=== PATIENT | female | born 1935 | race Caucasian/White ===

== ENCOUNTER 2016-03-21 08:36 | Inpatient (IN) | payer MEDICARE, MEDICAID ==
[~2016-03-21] VITALS: Ht 162.6 cm; Wt 88.9 kg
--- NOTE | 2016-03-21 09:32 | Emergency Room Report ---
History of Present Illness General Chief Complaint: Multiple Trauma/Fall Source: Caregiver Present Illness HPI 81 YO F KIANA, sent by PMD Dr Carranza for failure to thrive and weakness. Patient's daughter endorses increased difficulty caring for mother - has ? dementia - is weak, cant ambulate for "some time." States they were trying to change her and she slid off couch but didnt fall hard or hurt anything on the fall. Denies any pain now. Patient's daughter also endorses decreased appetite , not eating/drinking normally. Patient's has "broken leg" and its been difficult for daughter to care for both of them at her house. patient also refusing to take her medication for HTN, thyroid, "memory pil;l." I disagree with non destructive evaluation specialist note that patient is here for "Fall" with back pain. Dr Carranza called ED yesterday to let us know he was sending patient for admission for failure to thrive and weakness. Allergies: Coded Allergies: No Known Allergies (Unverified , 03/21/16) Patient History Past Medical History: other - HTN, "thyroid problem," ?dementia Past Surgical History: none Pertinent Family History: none Social History: Denies: alcohol use, drug use, smoking Now: No Immunizations: UTD Nursing Documentation-PMH Hx Cardiac Problems: No Hx Hypertension: Yes Hx Pacemaker: No Hx Asthma: No Hx COPD: No Hx Diabetes: No Hx Cancer: No Hx Gastrointestinal Problems: No History Of Psychiatric Problem: No Hx Neurological Problems: Yes - thyroid Hx Cerebrovascular Accident: No Hx Seizures: No Review of Systems All Other Systems: negative except mentioned in HPI Physical Exam Vital Signs Date Time Temp Pulse Resp B/P Pulse Ox O2 Delivery O2 Flow Rate FiO2 03/21/16 08:58 97.9 66 16 126/80 98 Room Air Sp02 EP Interpretation: reviewed, normal General Appearance: normal inspection, well appearing, no apparent distress, alert, GCS 15, non-toxic, other - Elderly appearing, calm cooperative Head: normocephalic, atraumatic Eyes: bilateral eye EOMI, bilateral eye PERRL ENT: normal ENT inspection, hearing grossly normal, normal voice Neck: normal inspection, full range of motion, supple, no bony tend Respiratory: normal inspection, lungs clear, normal breath sounds, no respiratory distress, no retraction, no wheezing Cardiovascular #1: regular rate, rhythm, no edema Gastrointestinal: normal inspection, normal bowel sounds, non tender, soft, no guarding, no hernia Genitourinary: no CVA tenderness Musculoskeletal: normal inspection, back normal, normal range of motion, non- tender, no calf tenderness, pelvis stable, Macho's Sign negative Neurologic: normal inspection, alert, oriented x3, responsive, staff climate scientist III-XII nml as tested, speech normal, other - Weakness, 2/5 strength in lower extremities. Sensation intact. Psychiatric: normal inspection, judgement/insight normal, mood/affect normal Skin: normal inspection, normal color, no rash Medical Decision Making Medicare Attestation I Roxanna Tellez MD hereby attest that the medical record entry for date of service, 02/26/16 accurately reflects signatures/notations that I made in my capacity as MD when I treated/diagnosed the above listed Medicare beneficiary. I attest that this information is true, accurate and complete to the best of my knowledge. I understand that any falsification, omission, or concealment of material fact may subject me to administrative, civil, or criminal liability. This patient warrants hospital admission for extreme of age and has a condition that cannot be treated as outpatient. Diagnostic Impression: Primary Impression: Failure to thrive Qualified Codes: R62.7 - Adult failure to thrive Additional Impression: Weakness ER Course 81 YO F with failure to thrive, chronic weakness. Non compliance with home medication. VSS. Afebrile. DDx Metabolic abnormality, infection, CVA, AMI, dementia PLAN Evaluate for medical cause of weakness with labs, CXR/UA, CT head Admit for weakness to Dr Carranza EKG Diagnostic Results Rate: normal Rhythm: NSR ST Segments: no acute changes ASA given to the pt in ED: No Rhythm Strip Diag. Results EP Interpretation: yes Rate: 68 Rhythm: NSR, no PVC's, no ectopy Chest X-Ray Diagnostic Results EP Interpretation: Yes Findings: no consolidation, no effusion, no pneumothorax, no acute cardiopulmonary disease, other - bilateral interstitial disease Number of Views: 1 Reevaluation Time: 10:22 Last Vital Signs Date Time Temp Pulse Resp B/P Pulse Ox O2 Delivery O2 Flow Rate FiO2 03/21/16 08:58 97.9 66 16 126/80 98 Room Air Status: improved Reevaluation Impression labs: Mild leuks. UA no UTI. CMP normal. Troponin 0. CXR: No acute PNA EKG is NSR, no ischemia CT head: age related changes, no CVA, mass, mass effect A: Endorsed to Dr Carranza for admission for failure to thrive/weakness at 1022am. Disposition: ADMITTED INPATIENT Condition: Serious ROXANNA TELLEZ M.D. Mar 21, 2016 09:32
[2016-03-21] MEDS ORDERED: KLONOPIN0.5 MG ORAL (09:56)
[2016-03-21] MEDS ORDERED: SIMVASTATIN20 MG ORAL (09:56)
[2016-03-21] MEDS ORDERED: AMBIEN10 M1 ORAL (09:56)
[2016-03-21] MEDS ORDERED: LEVOTHYROXINE125 MCG ORAL (09:57)
[2016-03-21] MEDS ORDERED: AMLODIPINE BESYL5 MG ORAL (09:57)
[2016-03-21] MEDS ORDERED: NAMZARIC 28 MG1 EACH PO (09:58)
[2016-03-21 10:05] LABS: BASOPHILS % (AUTO) 1.2 % (0.0-2.0); EOSINOPHILS % (AUTO) 4.2 % (0.0-3.0); LYMPHOCYTES % (AUTO) 30.2 % (20.0-45.0); MEAN CORPUSCULAR HEMOGLOBIN 28.5 PG (27.0-31.0); MEAN CORPUSCULAR HGB CONC 32.3 G/DL (32.0-36.0); MEAN CORPUSCULAR VOLUME 88 FL (80-99); MEAN PLATELET VOLUME 7.2 FL (6.5-10.1); MONOCYTES % (AUTO) 6.2 % (1.0-10.0); NEUTROPHILS % (AUTO) 58.2 % (45.0-75.0); PLATELET COUNT 285 K/UL (150-450); RED BLOOD COUNT 4.55 M/UL (4.20-5.40); RED CELL DISTRIBUTION WIDTH 14.1 % (11.6-14.8); WHITE BLOOD COUNT 12.8 K/UL (4.8-10.8)
--- NOTE | 2016-03-21 10:19 | Diagnostic Imaging Report ---
Indication: PAIN Technique: One view of the chest Comparison: none Findings: Inspiration is suboptimal There is mild generalized interstitial prominence. Patient is rotated to the right. No focal airspace consolidation. Heart size is borderline enlarged. There are degenerative changes of the right shoulder Impression: Bilateral mild interstitial disease, acuity indeterminate. Correlate with clinical findings Other findings as noted
[2016-03-21 10:23] LABS: ALANINE AMINOTRANSFERASE 16 U/L (3-33); ALBUMIN/GLOBULIN RATIO 1.2 (1.0-2.7); ANION GAP 15 (5-15); ASPARTATE AMINO TRANSFERASE 26 U/L (5-40); CALCIUM 9.4 mg/dL (8.6-10.2); CARBON DIOXIDE 29 mEQ/L (20-30); CHLORIDE 97 mEQ/L (98-107); CREATININE 0.7 mg/dL (0.5-0.9); HEMOLYSIS 73; POTASSIUM 4.3 mEQ/L (3.4-4.9); SODIUM 141 mEQ/L (135-145); TOTAL PROTEIN 7.3 g/dL (6.6-8.7); TROPONIN I < 0.30 ng/mL (<=0.30)
[2016-03-21 10:34] LABS: CKMB 2.5 ng/mL (< 3.8)
[2016-03-21 11:21] VITALS: BP 126/77
[2016-03-21 11:33] LABS: APPEARANCE,URINE CLEAR; KETONES,URINE NEGATIVE (NEGATIVE); LEUKOCYTE ESTERASE ,URINE NEGATIVE (NEGATIVE); NITRITE,URINE NEGATIVE (NEGATIVE); PH,URINE 6 (4.5-8.0); PROTEIN,URINE 1+ (NEGATIVE); UROBILINOGEN,URINE NORMAL MG/DL (0.0-1.0)
[2016-03-21 11:48] LABS: BACTERIA,URINE FEW /HPF; RBC,URINE 0-2 /HPF (0 - 2); SQUAMOUS EPITHELIAL CELL,UR OCCASIONAL /LPF (NONE/OCC); WBC,URINE 0-2 /HPF (0 - 2)
--- NOTE | 2016-03-21 12:29 | History & Physical ---
History and Physical History & Physicial .[facility] # [id number] SHARAD CAMACHO Mar 21, 2016 12:29
[2016-03-21 12:30] VITALS: BP 138/64
[2016-03-21] MEDS ORDERED: Zolpidem 5mg tab ORAL PRN (13:00)
[2016-03-21] MEDS ORDERED: Milk of Magnesia 30ml Ud ORAL PRN (13:00)
[2016-03-21] MEDS: Levothyroxine 125mcg tab ORAL SCH (13:12)
[2016-03-21] MEDS: clonazePAM 0.5mg tab ORAL SCH ×2 (13:12→18:30)
[2016-03-21] MEDS: Memantine 10mg tab ORAL SCH (13:13)
[2016-03-21 16:00] VITALS: BP 117/69
[2016-03-21 19:00] VITALS: BP 120/77
--- NOTE | 2016-03-21 21:58 | History and Physical Report ---
DATE OF ADMISSION: 03/21/2016 CHIEF COMPLAINT: Frequent falls, progressive dementia, and failure to thrive. HISTORY OF PRESENT ILLNESS: This is an 81-year-old [place] female, who was brought in by the daughter to the emergency room. The patient lives with her daughter and she has been unable to take care of her because she falls very frequently. She has progressive dementia and not functioning well at home. The patient has also some elevated white count with no obvious source of infection. PAST MEDICAL HISTORY: As mentioned, the patient has history of dementia of the Alzheimer's type. The patient has history of hypertension and hypothyroidism. MEDICATIONS: Reviewed in the EMR. ALLERGIES: No known drug allergies. SOCIAL HISTORY: No history of smoking or alcohol abuse. REVIEW OF SYSTEMS: As above. PHYSICAL EXAMINATION: GENERAL: The patient is an elderly female, in no acute distress. VITAL SIGNS: Blood pressure is 130/88, pulse 63, respirations 14, and temperature 97 degrees. HEENT: [place] conjunctivae. Anicteric sclerae. NECK: Supple. LUNGS: Clear to auscultation. HEART: S1 and S2 without murmurs or rubs. ABDOMEN: Soft and nontender. EXTREMITIES: No cyanosis or edema. LABORATORY FINDINGS: The CBC shows a WBC of 12.8, hematocrit is 40.2, hemoglobin is 13, and platelet is 285,000. The chemistry panel shows a serum sodium 141, potassium 4.3, chloride 97, CO2 29, BUN 16, and creatinine 0.7. Blood sugar is 105. AST is 26 and ALT 16. Albumin is 4. Troponin was negative. UA was negative except 1+ protein. ASSESSMENT: This is an 81-year-old female, who is admitted with failure to thrive, frequent falls, and change in mental status. The patient has hypothyroidism. It is unclear if her progressive dementia is related to her hypothyroidism or just from Alzheimer. PLAN: The patient will be admitted. We will check the thyroid function panel. We will continue her current medications and physical therapy will be ordered. The patient will eventually need to go to a [facility] facility. Melecio Carranza M.D. DR: DHEERAJ JOB#: [id number] CC: DEANNE
[2016-03-21] MEDS: Donepezil 10mg tab ORAL SCH (22:25)
[2016-03-22] VITALS: BP 139/72
[2016-03-22 04:00] VITALS: BP 136/59
[2016-03-22 08:00] VITALS: BP 114/54
[2016-03-22 08:21] LABS: ALANINE AMINOTRANSFERASE 14 U/L (3-33); ALBUMIN/GLOBULIN RATIO 1.2 (1.0-2.7); ANION GAP 14 (5-15); ASPARTATE AMINO TRANSFERASE 18 U/L (5-40); CALCIUM 8.8 mg/dL (8.6-10.2); CARBON DIOXIDE 27 mEQ/L (20-30); CHLORIDE 99 mEQ/L (98-107); CHOLESTEROL 155 mg/dL (< 200); CHOLESTEROL/HDL RATIO 3.4 (3.3-4.4); CREATININE 0.7 mg/dL (0.5-0.9); HEMOLYSIS 0; LDL CHOLESTEROL (CALC.) 94 mg/dL (60-99); POTASSIUM 3.8 mEQ/L (3.4-4.9); SODIUM 140 mEQ/L (135-145); TOTAL PROTEIN 6.8 g/dL (6.6-8.7)
[2016-03-22 08:25] LABS: HEMOGLOBIN A1C 5.4 % (< 6.0)
[2016-03-22] MEDS: Levothyroxine 125mcg tab ORAL SCH (09:01)
[2016-03-22] MEDS: Memantine 10mg tab ORAL SCH (09:01)
[2016-03-22] MEDS: clonazePAM 0.5mg tab ORAL SCH ×3 (09:01→17:53)
[2016-03-22 12:00] VITALS: BP 125/65
--- NOTE | 2016-03-22 13:56 | Cardiology Report ---
APPROVED REPORT EKG Measurement Heart [id number] Normal sinus rhythm Moderate voltage criteria for LVH, may be normal variant Borderline ECG
[2016-03-22 16:00] VITALS: BP 127/68
--- NOTE | 2016-03-22 16:47 | General Progress Note ---
Assessment/Plan Problem List: (1) Failure to thrive SNOMED: 66704717 Qualifiers: Qualified Codes: R62.7 - Adult failure to thrive (2) Alzheimer's dementia ICD Codes: G30.9 - Alzheimer's disease, unspecified SNOMED: 36554921 Qualifiers: (3) HTN (hypertension) ICD Codes: I10 - Essential (primary) hypertension SNOMED: 70161019 (4) Hypothyroidism ICD Codes: E03.9 - Hypothyroidism, unspecified SNOMED: 46385285 Assessment/Plan Increase TSH PT Discussed with RN Subjective Allergies: Coded Allergies: No Known Allergies (Unverified , 03/21/16) Subjective In NAD Objective Last 24 Hour Vital Signs Date Time Temp Pulse Resp B/P Pulse Ox O2 Delivery O2 Flow Rate FiO2 03/22/16 16:00 99.0 83 16 127/68 93 Room Air 03/22/16 12:00 98.1 82 20 125/65 91 Room Air 03/22/16 09:00 79 114/54 03/22/16 08:00 98.2 79 20 114/54 92 Room Air 03/22/16 04:00 97.2 57 17 136/59 95 Room Air 03/22/16 00:00 97.9 87 20 139/72 91 Room Air 03/21/16 19:00 98.0 73 18 120/77 97 Room Air Intake and Output 03/21/16 03/22/16 19:00 07:00 Intake Total 240 ml 500 ml Output Total 150 ml Balance 90 ml 500 ml Intake Oral 240 ml 500 ml Output Stool Total 150 ml # Voids 1 6 Laboratory Tests 03/22/16 07:15: Sodium Level 140, Potassium Level 3.8, Chloride Level 99, Carbon Dioxide Level 27, Anion Gap 14, Blood Urea Nitrogen 15, Creatinine 0.7, Estimat Glomerular Filtration Rate , Glucose Level 114H, Hemoglobin A1c 5.4, Calcium Level 8.8, Total Bilirubin 0.6, Aspartate Amino Transf (AST/SGOT) 18, Alanine Aminotransferase (ALT/SGPT) 14, Alkaline Phosphatase 86, Total Protein 6.8, Albumin 3.8, Globulin 3.0, Albumin/Globulin Ratio 1.2, Triglycerides Level 79, Cholesterol Level 155, LDL Cholesterol 94, HDL Cholesterol 45, Cholesterol/HDL Ratio 3.4, Thyroid Stimulating Hormone (TSH) 20.950H Height (Feet): 5 Height (Inches): 4.00 Weight (Pounds): 196 Cardiovascular: normal rate Respiratory/Chest: lungs clear Edema: no edema noted Generalized SHARAD CAMACHO Mar 22, 2016 16:47
[2016-03-22 20:00] VITALS: BP 130/69
[2016-03-22] MEDS: Donepezil 10mg tab ORAL SCH (22:02)
[2016-03-23] VITALS: BP 129/59
[2016-03-23 04:00] VITALS: BP 126/63
[2016-03-23 08:00] VITALS: BP 150/71
[2016-03-23] MEDS ORDERED: Levothyroxine 125mcg tab ORAL SCH (09:00)
[2016-03-23] MEDS: clonazePAM 0.5mg tab ORAL SCH ×2 (10:14→18:20)
[2016-03-23] MEDS: Memantine 10mg tab ORAL SCH (10:16)
[2016-03-23 12:00] VITALS: BP 133/57
--- NOTE | 2016-03-23 14:36 | Diagnostic Imaging Report ---
Indications: Pain status post fall Technique: Spiral acquisitions obtained through the brain. Angled axial and coronal 5 x 5 mm slices were reconstructed. Total dose length product 1339 mGycm. CTDI vol(s) 70 mGy Comparison: None Findings: There is age-related enlargement of the ventricles and extra axial CSF spaces. There is a calcification within the right side of the cerebellum. There is minimal periventricular deep white matter chronic ischemic change. No acute hemorrhage or edema. No mass effect or midline shift. Intact calvarium. Visualized orbits and sinuses are unremarkable Impression: Negative for acute intracranial bleed or mass effect Chronic and age-related changes, as described Calcification within the right cerebellar hemisphere, may be physiologic dentate nucleus calcification, versus process such as old cysticercosis. The CT scanner at [facility] is accredited by the [employer] and the scans are performed using protocols designed to limit radiation exposure to as low as reasonably achievable to attain images of sufficient resolution adequate for diagnostic evaluation.
[2016-03-23 16:00] VITALS: BP 108/76
--- NOTE | 2016-03-23 18:15 | General Progress Note ---
Assessment/Plan Problem List: (1) Failure to thrive SNOMED: 87126041 Qualifiers: Qualified Codes: R62.7 - Adult failure to thrive (2) Alzheimer's dementia ICD Codes: G30.9 - Alzheimer's disease, unspecified SNOMED: 11840902 Qualifiers: (3) HTN (hypertension) ICD Codes: I10 - Essential (primary) hypertension SNOMED: 93410473 (4) Hypothyroidism ICD Codes: E03.9 - Hypothyroidism, unspecified SNOMED: 13126231 Assessment/Plan Increase TSH PT Discussed with RN Subjective Allergies: Coded Allergies: No Known Allergies (Unverified , 03/21/16) Subjective In NAD Objective Last 24 Hour Vital Signs Date Time Temp Pulse Resp B/P Pulse Ox O2 Delivery O2 Flow Rate FiO2 03/23/16 16:00 96.4 88 20 108/76 100 Room Air 03/23/16 12:00 98.4 75 18 133/57 94 Room Air 03/23/16 10:15 86 116/52 03/23/16 08:00 97.2 73 18 150/71 95 Room Air 03/23/16 04:00 98.1 71 20 126/63 92 Room Air 03/23/16 00:00 99.1 84 20 129/59 92 Room Air 03/22/16 20:00 98.2 79 17 130/69 94 Room Air Intake and Output 03/22/16 03/23/16 19:00 07:00 Intake Total 240 ml Balance 240 ml Intake Oral 240 ml # Voids 2 2 Height (Feet): 5 Height (Inches): 4.00 Weight (Pounds): 196 Cardiovascular: normal rate Respiratory/Chest: lungs clear SHARAD CAMACHO Mar 23, 2016 18:15
[2016-03-23 20:00] VITALS: BP 144/70
[2016-03-23] MEDS: Donepezil 10mg tab ORAL SCH (21:24)
[2016-03-24] VITALS: BP 137/72
[2016-03-24 04:00] VITALS: BP 165/66
[2016-03-24 04:15] VITALS: BP 134/73
[2016-03-24 08:00] VITALS: BP 148/80
[2016-03-24 08:33] VITALS: BP 148/80
[2016-03-24] MEDS: clonazePAM 0.5mg tab ORAL SCH (08:33)
[2016-03-24] MEDS: Memantine 10mg tab ORAL SCH (08:33)
[2016-03-24] MEDS ORDERED: LEVOTHYROXINE75 MCG ORAL (11:16)
[2016-03-24] MEDS ORDERED: LEVOTHYROXINE100 MCG ORAL (11:16)
--- NOTE | 2016-03-24 11:20 | Consultation ---
Consult Note Assessment/Plan DC dictated # [id number] SHARAD CAMACHO Mar 24, 2016 11:20
--- NOTE | 2016-03-25 17:28 | Discharge Summary ---
DATE OF ADMISSION: 03/21/2016 DATE OF DISCHARGE: 03/24/2016 CHIEF COMPLAINT: Failure to thrive, change in mental status and progressive dementia. HISTORY OF PRESENT ILLNESS: This is an 81-year-old female, who is admitted with above diagnosis. She had also history of hyponatremia. HOSPITAL COURSE: The patient's TSH was checked and was more than 20. The patient was found to be hypothyroid. She was already on thyroid and the dose was changed from 120 mcg to 170 mcg a day. The patient had also history of hypertension, although blood pressure was controlled. Eventually, she was sent to [facility] for rehabilitation. DISCHARGE DIAGNOSES: 1. Failure to thrive. 2. Progressive Alzheimer's dementia. 3. Hypertension. 4. Hypothyroidism. DISCHARGE MEDICATION: Please refer to discharge medication list. Melecio Carranza M.D. DR: DEBI JOB#: [id number] CC:
== END 2016-03-24 14:56 | DRG 57 ==
LOC: ENRESERVDT → ENRESERVTM → EDBD 08:36 → EMR 09:37 → 4E 09:43 → EDBEDREQ 12:05 → EMR 12:21
DX: G30.9 Alzheimer's disease, unspecified (principal); R62.7 Adult failure to thrive; F02.80 Dementia in other diseases classified elsewhere, unspecified severity, without behavioral disturbance, psychotic disturbance, mood disturbance, and anxiety; E03.9 Hypothyroidism, unspecified; I10 Essential (primary) hypertension; Z91.81 History of falling
CPT/HCPCS: 36415; 70450; 71010; 80053; 80061; 81003; 82550; 82553; 83036; 84443; 84484; 85025; 93005

== ENCOUNTER 2019-04-29 11:08 | Inpatient (IN) | payer MEDICARE, MEDICAID ==
[~2019-04-29] VITALS: Ht 162.6 cm; Wt 83.9 kg
[~2019-04-29 11:08] MED LIST: AMBIEN10 M1 ORAL; AMLODIPINE BESYL5 MG ORAL; KLONOPIN0.5 MG ORAL; LEVOTHYROXINE100 MCG ORAL; LEVOTHYROXINE125 MCG ORAL; LEVOTHYROXINE75 MCG ORAL; NAMZARIC 28 MG1 EACH PO; SIMVASTATIN20 MG ORAL
[2019-04-29] MEDS ORDERED: Cefepime HCl 2 GM in NS 110 ML IV SCH (11:15)
[2019-04-29] MEDS ORDERED: Sodium Chloride 2,500 ML IVLG ONE (11:15)
[2019-04-29 11:30] VITALS: BP 116/62
[2019-04-29] MEDS ORDERED: Solu-MEDROL 125mg Inj IVP ONE (11:30)
[2019-04-29] MEDS ORDERED: Albuterol ud Inhalation HHN ONE ×2 (11:30→13:30)
[2019-04-29] MEDS ORDERED: Ipratropium 0.02% Inh Soln 2.5ml UD HHN ONE ×2 (11:30→13:30)
--- NOTE | 2019-04-29 11:30 | NUR ---
ED Nurse Note: pt brought in by ambulance from [facility] due to SOB started this morning. upon arrival O2 sat at 93% in room air but SOB noted. pt aao x1 and bedridden. calm but fatigued. pt is in gown and on laboratory monitor. RT and ERMD at bedside.
[2019-04-29 12:41] LABS: APPEARANCE,URINE CLEAR; BILIRUBIN, URINE NEGATIVE (NEGATIVE); COLOR,URINE PALE YELLOW; GLUCOSE, URINE (UA) NEGATIVE (NEGATIVE); KETONES,URINE NEGATIVE (NEGATIVE); LEUKOCYTE ESTERASE ,URINE NEGATIVE (NEGATIVE); NITRITE,URINE NEGATIVE (NEGATIVE); PH,URINE 6 (4.5-8.0); PROTEIN,URINE NEGATIVE (NEGATIVE); UROBILINOGEN,URINE NORMAL MG/DL (0.0-1.0)
--- NOTE | 2019-04-29 12:42 | Diagnostic Imaging Report ---
Indication: Dyspnea Comparison: 03/21/2016 A single view chest radiograph was obtained. Findings: Interstitial edema suspected with interstitial densities, prominent vascularity and heart size. No definite pleural effusions are identified. Aorta is ectatic. There is a deformity of the right humeral head. Bones are osteopenic. IMPRESSION: Suspected CHF.
[2019-04-29 12:46] LABS: ANION GAP 9 mmol/L (5-15); BLOOD UREA NITROGEN 20 mg/dL (7-18); CALCIUM 9.1 MG/DL (8.5-10.1); CARBON DIOXIDE 32 MMOL/L (21-32); CHLORIDE 104 MMOL/L (98-107); CREATININE 0.9 MG/DL (0.55-1.30); POTASSIUM 3.8 MMOL/L (3.5-5.1); SODIUM 145 MMOL/L (136-145)
[2019-04-29 12:54] LABS: EOSINOPHILS % (AUTO) 1.6 % (0.0-3.0); HEMATOCRIT 39.9 % (37.0-47.0); HEMOGLOBIN 13.4 G/DL (12.0-16.0); MEAN CORPUSCULAR VOLUME 88 FL (80-99); MONOCYTES % (AUTO) 8.4 % (1.0-10.0); NEUTROPHILS % (AUTO) 57.9 % (45.0-75.0); PLATELET COUNT 180 K/UL (150-450); RED BLOOD COUNT 4.55 M/UL (4.20-5.40); RED CELL DISTRIBUTION WIDTH 12.9 % (11.6-14.8); WHITE BLOOD COUNT 17.1 K/UL (4.8-10.8)
[2019-04-29 13:03] LABS: ALANINE AMINOTRANSFERASE 38 U/L (12-78); ALBUMIN 3.2 G/DL (3.4-5.0); ALBUMIN/GLOBULIN RATIO 0.8 (1.0-2.7); ALKALINE PHOSPHATASE 78 U/L (46-116); ASPARTATE AMINO TRANSFERASE 18 U/L (15-37); BILIRUBIN,TOTAL 0.4 MG/DL (0.2-1.0); CREATINE KINASE 29 U/L (26-308)
[2019-04-29 13:30] VITALS: BP 126/75
--- NOTE | 2019-04-29 13:30 | NUR ---
RESPIRATORY NOTE: Pt placed on bipap 12/ Rate of 14 30%, SaO2 97%. Bilateral wheeze/diminished breathsounds. ABG drawn. treatment given. RN aware.
--- NOTE | 2019-04-29 14:20 | NUR ---
RESPIRATORY NOTE: Per Dr. Madera, remove pt on bipap. Placed pt on 2LPM NC. Keep SaO2>92%. Pt's current SaO2 is 98%. RN Brad ocampo.
--- NOTE | 2019-04-29 14:24 | NUR ---
ED Nurse Note: per Dr. Madera, pt does not need Bipap due to ABG results.
--- NOTE | 2019-04-29 14:30 | History & Physical ---
History and Physical History & Physicial HP dictated # [id number] Melecio Carranza MD Apr 29, 2019 14:30
--- NOTE | 2019-04-29 14:39 | Consultation ---
History of Present Illness General Date patient seen: Apr 29, 2019 Time patient seen: 14:24 Chief Complaint: Dyspnea/Respdistress Referring physician: Melecio Carranza MD Reason for Consultation: SOB/RF Present Illness HPI 84 F NHR h/o dementia, COPD, CHF with mild DD only recently discharged from [facility] BIB EMS with SOB, wheezing. She had inc WOB so was placed on BiPAP by the ED physician. + cough + wheezing + SOB no FC no CP She passed a swallow eval @ [facility] last year. W/U thus far concerning for leukocytosis and lactic acidosis, CXR with few scattered b ll predominant opacities. Allergies: Coded Allergies: PENICILLINS (Verified Allergy, Unknown, 04/29/19) Medication History Scheduled Amlodipine Besylate* (Amlodipine Besylate*), 5 MG ORAL DAILY, (Reported) Clonazepam* (Klonopin*), 0.5 MG ORAL BID, (Reported) Levothyroxine Sodium* (Levothyroxine Sodium*), 75 MCG ORAL DAILY@0630 Levothyroxine Sodium* (Levothyroxine Sodium*), 100 MCG ORAL DAILY@0630 Memantine HCl/Donepezil HCl (Namzaric 28 mg-10 mg Capsule), 1 EACH PO BEDTIME, ( Reported) Simvastatin (Zocor), 20 MG ORAL BEDTIME, (Reported) Scheduled PRN Zolpidem Tartrate* (Ambien*), 10 MG ORAL HS PRN for Insomnia, (Reported) Patient History Limited by: medical condition History Provided By: Medical Record, EMS Healthcare decision maker Resuscitation status Advanced Directive on File Past Medical/Surgical History Past Medical/Surgical History: (1) Failure to thrive (2) Alzheimer's dementia (3) Hypothyroidism (4) HTN (hypertension) Social History Social History: (1) No known exposure to tobacco smoke (2) custodial resident Review of Systems ROS Narrative Unobtainable Physical Exam General Appearance: lethargic, other - obtunded Lines, tubes and drains: peripheral HEENT: normocephalic, atraumatic, anicteric, mucous membranes moist Neck: normal alignment, other - 8 cm JVD Respiratory/Chest: crackles/rales - BiB, expiratory wheezing, inspiratory wheezing Cardiovascular/Chest: normal peripheral pulses, normal rate, regular rhythm Abdomen: normal bowel sounds, non tender, soft, no organomegaly, no mass Extremities: other - No CC, trace DAVID Last 24 Hour Vital Signs Date Time Temp Pulse Resp B/P (MAP) Pulse Ox O2 Delivery O2 Flow Rate FiO2 04/29/19 11:39 118 23 Nasal Cannula 2.0 28 04/29/19 11:38 119 21 99 Nasal Cannula 2.0 28 118 23 97 04/29/19 11:30 97.9 100 22 116/62 98 04/29/19 11:04 97.9 127 22 116/62 (80) 98 Laboratory Tests Test 04/29/19 11:45 04/29/19 12:30 04/29/19 13:37 04/29/19 14:18 White Blood Count 17.1 K/UL (4.8-10.8) H Red Blood Count 4.55 M/UL (4.20-5.40) Hemoglobin 13.4 G/DL (12.0-16.0) Hematocrit 39.9 % (37.0-47.0) Mean Corpuscular Volume 88 FL (80-99) Mean Corpuscular Hemoglobin 29.5 PG (27.0-31.0) Mean Corpuscular Hemoglobin Concent 33.6 G/DL (32.0-36.0) Red Cell Distribution Width 12.9 % (11.6-14.8) Platelet Count 180 K/UL (150-450) Mean Platelet Volume 6.8 FL (6.5-10.1) Neutrophils (%) (Auto) 57.9 % (45.0-75.0) Lymphocytes (%) (Auto) 31.0 % (20.0-45.0) Monocytes (%) (Auto) 8.4 % (1.0-10.0) Eosinophils (%) (Auto) 1.6 % (0.0-3.0) Basophils (%) (Auto) 1.0 % (0.0-2.0) Sodium Level 145 MMOL/L (136-145) Potassium Level 3.8 MMOL/L (3.5-5.1) Chloride Level 104 MMOL/L (98-107) Carbon Dioxide Level 32 MMOL/L (21-32) Anion Gap 9 mmol/L (5-15) Blood Urea Nitrogen 20 mg/dL (7-18) H Creatinine 0.9 MG/DL (0.55-1.30) Estimat Glomerular Filtration Rate mL/min (>60) Glucose Level 149 MG/DL (74-106) H Lactic Acid Level 4.40 mmol/L (0.4-2.0) H Pending Calcium Level 9.1 MG/DL (8.5-10.1) Total Bilirubin 0.4 MG/DL (0.2-1.0) Aspartate Amino Transf (AST/SGOT) 18 U/L (15-37) Alanine Aminotransferase (ALT/SGPT) 38 U/L (12-78) Alkaline Phosphatase 78 U/L (46-116) Total Creatine Kinase 29 U/L (26-308) Creatine Kinase MB 1.0 NG/ML (0.0-3.6) Creatine Kinase MB Relative Index 3.4 Troponin I 0.053 ng/mL (0.000-0.056) Total Protein 7.1 G/DL (6.4-8.2) Albumin 3.2 G/DL (3.4-5.0) L Globulin 3.9 g/dL Albumin/Globulin Ratio 0.8 (1.0-2.7) L Urine Color Pale yellow Urine Appearance Clear Urine pH 6 (4.5-8.0) Urine Specific [place] 1.005 (1.005-1.035) Urine Protein Negative (NEGATIVE) Urine Glucose (UA) Negative (NEGATIVE) Urine Ketones Negative (NEGATIVE) Urine Blood Negative (NEGATIVE) Urine Nitrite Negative (NEGATIVE) Urine Bilirubin Negative (NEGATIVE) Urine Urobilinogen Normal MG/DL (0.0-1.0) Urine Leukocyte Esterase Negative (NEGATIVE) Arterial Blood pH 7.367 (7.350-7.450) Arterial Blood Partial Pressure CO2 41.0 mmHg (35.0-45.0) Arterial Blood Partial Pressure O2 163.0 mmHg (75.0-100.0) H Arterial Blood HCO3 23.0 mmol/L (22.0-26.0) Arterial Blood Oxygen Saturation 98.3 % (95-100) Arterial Blood Base Excess -2.2 (-2-2) L Avni Test Positive Microbiology Date/Time Source Procedure Growth Status 04/29/19 12:00 Nasal Nares - Final Complete 04/29/19 12:00 Nasal Nares - Final Complete Height (Feet): 5 Height (Inches): 4.00 Weight (Pounds): 185 Medications Current Medications Medications (Trade) Dose Ordered Sig/Hazel Route PRN Reason Start Time Stop Time Status Last Admin Dose Admin Acetaminophen (Tylenol) 650 mg Q4H PRN ORAL Mild Pain (Pain Scale 1-3) 04/29/19 13:45 05/29/19 13:44 Albuterol/ Ipratropium (Albuterol/ Ipratropium) 3 ml EVERY 6 HOURS HHN 04/29/19 13:45 05/04/19 13:44 UNV Amlodipine Besylate (Norvasc) 5 mg DAILY ORAL 04/29/19 13:45 05/29/19 13:44 UNV Cefepime HCl 2 gm/ Sodium Chloride 110 ml @ 220 mls/hr Q8H IV 04/29/19 11:15 04/30/19 11:14 04/29/19 12:25 Dextrose (Dextrose 50%) 25 ml Q30M PRN IV Hypoglycemia 04/29/19 13:45 05/29/19 13:44 Dextrose (Dextrose 50%) 50 ml Q30M PRN IV Hypoglycemia 04/29/19 13:45 05/29/19 13:44 Furosemide (Lasix) 40 mg DAILY IV 04/29/19 13:45 05/29/19 13:44 UNV Levothyroxine Sodium (Synthroid) 100 mcg DAILY@0630 ORAL 04/30/19 06:30 05/30/19 06:29 UNV Magnesium Hydroxide (Mom) 30 ml HSPRN PRN ORAL Constipation 04/29/19 13:45 05/29/19 13:44 UNV Assessment/Plan Problem List: (1) Lactic acid acidosis ICD Codes: E87.2 - Acidosis SNOMED: 39638230 (2) Leukocytosis ICD Codes: D72.829 - Elevated white blood cell count, unspecified SNOMED: 963289108, 605912740 (3) Healthcare-associated pneumonia ICD Codes: J18.9 - Pneumonia, unspecified organism SNOMED: 209667467, 559223175 (4) Diastolic CHF ICD Codes: I50.30 - Unspecified diastolic (congestive) heart failure SNOMED: 71045017, 865449108 (5) COPD exacerbation ICD Codes: J44.1 - Chronic obstructive pulmonary disease with (acute) exacerbation SNOMED: 732107133 (6) Alzheimer's dementia ICD Codes: G30.9 - Alzheimer's disease, unspecified SNOMED: 41403473 (7) HTN (hypertension) ICD Codes: I10 - Essential (primary) hypertension SNOMED: 55237006 (8) Hypothyroidism ICD Codes: E03.9 - Hypothyroidism, unspecified SNOMED: 05559716 (9) Failure to thrive SNOMED: 16252256 Status Narrative 84 F h/o alzheimers dementia, retirement resident, COPD, mild diastolic CHF, HTN, hypothyroidism and recent admission @ [facility] with a COPD exacerbation now p/ w respiratory failure likely 2/2 an acute COPD exacerbation +/- an antecedant URI/tracheobronchitis vs early PNA (HAP). With respect to her volume status she has mild DD only and appears slightly fluid overloaded on exam. The exact etiology of her lactic acidosis in unknown but she does not seem to be having a rip roaring infection at this time and review of CS-link shows an elevated LA in the past. Assessment/Plan: Optimize pulmonary hygiene/mobilize as tolerated Change BiPAP to PRN Titrate O2 to keep SaO2 > 90% SM 40 IV BID and taper RTC and PRN HHN's Start Levaquin/Flagyl/Vanco for HAP in PCN allergy Check rapid flu Monitor volumes and renal function, cautious diuresis as tolerated DVT Px: Hep SQ Aspiration precautions, ETYMOLOGY TEACHER Benson Estrella MD Apr 29, 2019 14:39
[2019-04-29 15:30] VITALS: BP 110/58
--- NOTE | 2019-04-29 15:45 | Emergency Room Report ---
History of Present Illness General Chief Complaint: Dyspnea/Respdistress Source: Medical Record, EMS Present Illness HPI This patient is brought in from a senior care facility. She has a history of COPD. The patient was recently discharged from [facility] for COPD. She presents with respiratory distress, hypoxemia and wheezing. The patient is nonverbal at baseline. This report is obtained by EMS from the senior care facility. Allergies: Coded Allergies: PENICILLINS (Verified Allergy, Unknown, 04/29/19) Patient History Past Medical History: see triage record, HTN, CHF, COPD, dementia Social History: Denies: smoking, alcohol use, drug use Now: No Reviewed Nursing Documentation: PMH: Agreed; PSxH: Agreed Nursing Documentation-PMH Hx Cardiac Problems: Yes - HTN Hx Hypertension: Yes Hx Pacemaker: No Hx Asthma: No Hx COPD: No Hx Diabetes: No Hx Cancer: No Hx Gastrointestinal Problems: Yes Hx Neurological Problems: Yes Hx Cerebrovascular Accident: No Hx Dementia: Yes Hx Seizures: No Review of Systems All Other Systems: negative except mentioned in HPI Physical Exam Vital Signs Date Time Temp Pulse Resp B/P (MAP) Pulse Ox O2 Delivery O2 Flow Rate FiO2 04/29/19 11:04 97.9 127 22 116/62 (80) 98 04/29/19 11:38 Nasal Cannula 2.0 28 Sp02 EP Interpretation: reviewed, normal General Appearance: no apparent distress, alert, GCS 15, non-toxic Head: normocephalic, atraumatic Eyes: bilateral eye normal inspection, bilateral eye PERRL ENT: hearing grossly normal, normal pharynx, no angioedema, normal voice Neck: full range of motion, supple/symm/no masses Respiratory: chest non-tender, respiratory distress, wheezing, expiration Cardiovascular #1: no edema, tachycardia Gastrointestinal: normal bowel sounds, non tender, soft, non-distended, no guarding, no rebound Rectal: deferred Musculoskeletal: back normal, normal range of motion, gait/station normal, non- tender Neurologic: alert, responsive Psychiatric: mood/affect normal, no suicidal/homicidal ideation Skin: other - See RN skin exam Medical Decision Making Diagnostic Impression: Primary Impression: COPD exacerbation Additional Impression: Lactic acid acidosis ER Course This patient presents with COPD exacerbation. The patient's white blood cell count is elevated, however, there is no evidence of pneumonia at this time. The patient had been on steroids at [facility] and this may be a steroid effect. She also has lactic acidosis. However, this also appears to be chronic and may be a medication effect. The patient presented in respiratory distress with significant wheezing. She was given aggressive nebulizer treatments with albuterol and Atrovent. She is given IV Solu-Medrol and placed on BiPAP to decrease her work of breathing. The patient was able to be weaned off of BiPAP during her ED course after getting aggressive pulmonary hygiene. The patient is DO NOT INTUBATE/DO NOT RESUSCITATE. She is admitted to telemetry for ongoing pulmonary hygiene monitoring and treatment. Laboratory Tests Test 04/29/19 11:45 04/29/19 12:30 04/29/19 13:37 04/29/19 14:18 White Blood Count 17.1 K/UL (4.8-10.8) H Red Blood Count 4.55 M/UL (4.20-5.40) Hemoglobin 13.4 G/DL (12.0-16.0) Hematocrit 39.9 % (37.0-47.0) Mean Corpuscular Volume 88 FL (80-99) Mean Corpuscular Hemoglobin 29.5 PG (27.0-31.0) Mean Corpuscular Hemoglobin Concent 33.6 G/DL (32.0-36.0) Red Cell Distribution Width 12.9 % (11.6-14.8) Platelet Count 180 K/UL (150-450) Mean Platelet Volume 6.8 FL (6.5-10.1) Neutrophils (%) (Auto) 57.9 % (45.0-75.0) Lymphocytes (%) (Auto) 31.0 % (20.0-45.0) Monocytes (%) (Auto) 8.4 % (1.0-10.0) Eosinophils (%) (Auto) 1.6 % (0.0-3.0) Basophils (%) (Auto) 1.0 % (0.0-2.0) Sodium Level 145 MMOL/L (136-145) Potassium Level 3.8 MMOL/L (3.5-5.1) Chloride Level 104 MMOL/L (98-107) Carbon Dioxide Level 32 MMOL/L (21-32) Anion Gap 9 mmol/L (5-15) Blood Urea Nitrogen 20 mg/dL (7-18) H Creatinine 0.9 MG/DL (0.55-1.30) Estimate Glomerular Filtration Rate mL/min (>60) Glucose Level 149 MG/DL (74-106) H Lactic Acid Level 4.40 mmol/L (0.4-2.0) H 5.20 mmol/L (0.66-2.22) H Calcium Level 9.1 MG/DL (8.5-10.1) Total Bilirubin 0.4 MG/DL (0.2-1.0) Aspartate Amino Transferase (AST) 18 U/L (15-37) Alanine Aminotransferase (ALT) 38 U/L (12-78) Alkaline Phosphatase 78 U/L (46-116) Total Creatine Kinase 29 U/L (26-308) Creatine Kinase MB 1.0 NG/ML (0.0-3.6) Creatine Kinase MB Relative Index 3.4 Troponin I 0.053 ng/mL (0.000-0.056) Total Protein 7.1 G/DL (6.4-8.2) Albumin 3.2 G/DL (3.4-5.0) L Globulin 3.9 g/dL Albumin/Globulin Ratio 0.8 (1.0-2.7) L Urine Color Pale yellow Urine Appearance Clear Urine pH 6 (4.5-8.0) Urine Specific [place] 1.005 (1.005-1.035) Urine Protein Negative (NEGATIVE) Urine Glucose (UA) Negative (NEGATIVE) Urine Ketones Negative (NEGATIVE) Urine Blood Negative (NEGATIVE) Urine Nitrite Negative (NEGATIVE) Urine Bilirubin Negative (NEGATIVE) Urine Urobilinogen Normal MG/DL (0.0-1.0) Urine Leukocyte Esterase Negative (NEGATIVE) Arterial Blood pH 7.367 (7.350-7.450) Arterial Blood Partial Pressure CO2 41.0 mmHg (35.0-45.0) Arterial Blood Partial Pressure O2 163.0 mmHg (75.0-100.0) H Arterial Blood HCO3 23.0 mmol/L (22.0-26.0) Arterial Blood Oxygen Saturation 98.3 % (95-100) Arterial Blood Base Excess -2.2 (-2-2) L Avni Test Positive Microbiology Date/Time Source Procedure Growth Status 04/29/19 12:00 Nasal Nares - Final Complete 04/29/19 12:00 Nasal Nares - Final Complete EKG Diagnostic Results Rate: tachycardiac Rhythm: other - S.tachycardia ST Segments: no acute changes Rhythm Strip Diag. Results EP Interpretation: yes Rate: 110's Rhythm: no PVC's, no ectopy, other Other Impression S.tachycardia Chest X-Ray Diagnostic Results Chest X-Ray Diagnostic Results : Chest X-Ray Ordered: Yes # of Views/Limited/Complete: 1 View Indication: Shortness of Breath EP Interpretation: Yes Interpretation: no consolidation, no effusion, no pneumothorax, no acute cardiopulmonary disease Impression: No acute disease Electronically Signed by: Brooke Horner DO Last Vital Signs Date Time Temp Pulse Resp B/P (MAP) Pulse Ox O2 Delivery O2 Flow Rate FiO2 04/29/19 13:30 98 25 97 Facial 30 107 25 98 Bi-Pap 30 04/29/19 11:39 2.0 04/29/19 11:30 97.9 116/62 Disposition: ADMITTED INPATIENT Condition: Serious Referrals: Melecio Carranza MD (PCP) Brooke Horner DO Apr 29, 2019 15:45
[2019-04-29] MEDS ORDERED: SIMVASTATIN20 MG ORAL (15:46)
[2019-04-29] MEDS ORDERED: AVAPRO75 MG ORAL (15:46)
[2019-04-29] MEDS ORDERED: LEVOTHYROXINE75 MCG ORAL (15:46)
[2019-04-29] MEDS ORDERED: PREDNISONE10 MG ORAL (15:46)
[2019-04-29] MEDS ORDERED: DONEPEZIL HCL10 M2 ORAL (15:46)
[2019-04-29] MEDS ORDERED: FUROSEMIDE40 MG ORAL (15:46)
[2019-04-29] MEDS ORDERED: NAMENDA10 MG ORAL (15:46)
[2019-04-29] MEDS ORDERED: ASPIRIN81 MG ORAL (15:46)
[2019-04-29] MEDS ORDERED: LATANOPROST2.5 ML BOTH EYES (15:46)
[2019-04-29] MEDS ORDERED: Milk of Magnesia 30ml Ud ORAL PRN (16:24)
--- NOTE | 2019-04-29 16:45 | NUR ---
ED Nurse Note: report given to ANETA Myers
--- NOTE | 2019-04-29 16:50 | NUR ---
ED Nurse Note: pt transferred with 1 turfgrass technician and 1 RN in stable condition. O2 sat at 96% in room air.
--- NOTE | 2019-04-29 17:00 | NUR ---
NURSE NOTES: Received pt from GOLF BALL COVER TREATERANETA CRANE, Pt is awake and nonverbal, pt has SOB with NC 2LMP, pt is on continues heart monitoring. Pt has intact iv access R and L wrist SL. Dr FRIAS is aware about admission and placed admission orders. Dr CAMACHO is aware about WBC 17.1, ABG results, and other lab results and V/S, MD will F/U. RN called SNF and asked ANETA LEROY regarding pt. Pt has area of concern look like DTI, pictures took and uploaded. wound nurse is aware. All needs attended, bed is locked and is in the lowest position, call light within easy reach. will continue to monitor.
[2019-04-29 17:31] VITALS: BP 124/54
[2019-04-29] MEDS: metroNIDAZOLE 500mg tab ORAL SCH (17:41)
--- NOTE | 2019-04-29 18:15 | History and Physical Report ---
DATE OF ADMISSION: 04/29/2019 CHIEF COMPLAINT: Shortness of breath. HISTORY OF PRESENT ILLNESS: This is an 84-year-old [place] female with history of dementia who is unable to provide any history. The patient lives in [facility] under my care. Nurse called me as the patient was very tachypneic, wheezing, and short of breath. The patient was sent to the emergency room for evaluation and was started on BiPAP and she is going to be admitted for acute respiratory failure. PAST MEDICAL HISTORY: Includes history of COPD, CHF, hypertension, hyperthyroidism, history of dyslipidemia. SOCIAL HISTORY: No history of smoking or alcohol abuse. The patient lives in [facility]. ALLERGIES: Penicillin. REVIEW OF SYSTEMS: Unobtainable. PHYSICAL EXAMINATION: GENERAL: The patient is an elderly female. She is nonverbal. VITAL SIGNS: Blood pressure 148/80, pulse 70, temperature 97.7, respiratory rate 18. HEENT: Somewhat pale conjunctivae. Anicteric sclerae. NECK: Supple. LUNGS: Bilateral expiratory wheezing. HEART: S1 and S2 tachycardic. ABDOMEN: Soft, nontender. EXTREMITIES: Bilateral pedal edema. LABORATORY FINDINGS: CBC shows WBC of 17,100, hematocrit 39.9, hemoglobin is 13.4, and platelet is 180,000. Chemistry panel shows sodium 145, potassium 3.8, chloride 104, CO2 32, BUN 20, creatinine 0.9, blood sugar is 149. Lactic acid 4.4. UA was negative. ASSESSMENT: This is an 84-year-old [place] female who was admitted for acute respiratory failure, hypoxic with wheezing, possible COPD exacerbation. There may be a component of CHF. She also has lactic acidosis. Sepsis needs to be ruled out although her blood pressure is normal. PLAN: The patient will be on bronchodilators, IV steroids, and antibiotics. BiPAP as needed. Pulmonary consultation was obtained. I will also get roving can tender involved. Labs will be followed and further adjustment will be made in the patient's regimen. Thank you very much. Melecio Carranza M.D. DR: [place] JOB#: [id number] CC:
--- NOTE | 2019-04-29 19:31 | NUR ---
HAND-OFF: Report given to PHYLICIA RN. Pt is awake and stable.
--- NOTE | 2019-04-29 19:36 | NUR ---
NURSE NOTES: Received pt and report from ANETA Aggarwal. Observed pt resting in bed with both eyes open. Pt is A/Ox0-1. monitor car operator is in placed; pt is NSR. IV site intact, symptomatic and patent. Pt is on 2L NC. Bed is in the lowest position and locked. Call light and bedside table is within reach. No signs/symptoms of acute distress noted at this time. Will continue plan of care.
[2019-04-29 20:00] VITALS: BP 110/63
[2019-04-29] MEDS: Solu-MEDROL 40mg Inj IVP SCH (20:58)
[2019-04-29] MEDS: Heparin 5000 units/ml inj SUBQ SCH (21:01)
[2019-04-29] MEDS: Vancomycin 500 MG in NS 110 ML IVPB SCH (21:48)
[2019-04-30] VITALS: BP 125/52
[2019-04-30] MEDS: metroNIDAZOLE 500mg tab ORAL SCH ×4 (01:10→17:16)
[2019-04-30 04:00] VITALS: BP 118/48
[2019-04-30 06:36] LABS: HEMATOCRIT 34.8 % (37.0-47.0); HEMOGLOBIN 12.1 G/DL (12.0-16.0); MEAN CORPUSCULAR VOLUME 87 FL (80-99); PLATELET COUNT 190 K/UL (150-450); RED BLOOD COUNT 3.99 M/UL (4.20-5.40); RED CELL DISTRIBUTION WIDTH 12.7 % (11.6-14.8); WHITE BLOOD COUNT 17.1 K/UL (4.8-10.8)
--- NOTE | 2019-04-30 07:11 | NUR ---
NURSE NOTES: Received pt from JULY RN, Pt is awake and alert, pt has SOB with 2LMP. pt has intact iv access RFA 22G SL. Pt is on continues heart monitoring, no complain of pain at this moment. Pt is NPO due to order. all needs attended, bed is locked and is in the lowest position, call light within easy reach. will continue to monitor.
[2019-04-30 07:16] LABS: ANION GAP 10 mmol/L (5-15); BLOOD UREA NITROGEN 21 mg/dL (7-18); CALCIUM 8.7 MG/DL (8.5-10.1); CARBON DIOXIDE 26 MMOL/L (21-32); CHLORIDE 110 MMOL/L (98-107); CHOLESTEROL 147 MG/DL (< 200); CREATININE 0.9 MG/DL (0.55-1.30); HDL CHOLESTEROL 59 MG/DL (40-60); SODIUM 146 MMOL/L (136-145); TRIGLYCERIDES 63 MG/DL (30-150)
--- NOTE | 2019-04-30 07:23 | NUR ---
HAND-OFF: Report given to ANETA Aggarwal. Plan of care endorsed.
[2019-04-30 07:57] VITALS: BP 135/56
[2019-04-30] MEDS: Heparin 5000 units/ml inj SUBQ SCH ×2 (08:39→22:10)
[2019-04-30] MEDS: Solu-MEDROL 40mg Inj IVP SCH ×2 (08:39→22:09)
[2019-04-30] MEDS: Vancomycin 500 MG in NS 110 ML IVPB SCH ×2 (08:40→22:09)
[2019-04-30] MEDS: Albuterol/Ipratropium 3ml neb HHN SCH ×3 (09:19→21:20)
--- NOTE | 2019-04-30 10:33 | NUR ---
NURSE NOTES: Dr CAMACHO visited pt and is aware about L buttock DTI and BI HEELS redness, ordered consult with Dr CROSS, Dr CROSS visited pt, no new order to RN. will continue to monitor.
--- NOTE | 2019-04-30 10:57 | General Progress Note ---
Assessment/Plan Problem List: (1) Acute respiratory failure with hypoxia ICD Codes: J96.01 - Acute respiratory failure with hypoxia SNOMED: 86801215, 063512249 (2) HTN (hypertension) ICD Codes: I10 - Essential (primary) hypertension SNOMED: 09471675 (3) Diastolic CHF ICD Codes: I50.30 - Unspecified diastolic (congestive) heart failure SNOMED: 76955487, 257277396 (4) COPD exacerbation ICD Codes: J44.1 - Chronic obstructive pulmonary disease with (acute) exacerbation SNOMED: 506450385 (5) Alzheimer's dementia ICD Codes: G30.9 - Alzheimer's disease, unspecified SNOMED: 29250974 (6) Hypothyroidism ICD Codes: E03.9 - Hypothyroidism, unspecified SNOMED: 66118797 Assessment/Plan: diuresis abxs Bronchodilators IV steroids Discussed with dr [place] Subjective Allergies: Coded Allergies: PENICILLINS (Verified Allergy, Unknown, 04/29/19) Subjective looks better Objective Last 24 Hour Vital Signs Date Time Temp Pulse Resp B/P (MAP) Pulse Ox O2 Delivery O2 Flow Rate FiO2 04/30/19 09:00 Nasal Cannula 2.0 04/30/19 08:43 73 04/30/19 08:39 64 135/56 04/30/19 08:00 2.0 04/30/19 07:57 96.8 64 20 135/56 (82) 94 04/30/19 04:00 98.6 73 20 118/48 (71) 97 04/30/19 04:00 73 04/30/19 04:00 2.0 04/30/19 00:00 78 04/30/19 00:00 97.9 78 19 125/52 (76) 97 04/29/19 21:00 Nasal Cannula 2.0 04/29/19 20:00 2.0 04/29/19 20:00 72 04/29/19 20:00 97.7 72 20 110/63 (79) 98 04/29/19 17:55 98 04/29/19 17:41 94 124/54 04/29/19 17:31 98.1 94 22 124/54 (77) 98 04/29/19 17:30 Nasal Cannula 2.0 04/29/19 16:50 97.8 89 21 126/79 96 Room Air 04/29/19 15:30 98.0 86 21 110/58 96 2.0 30 04/29/19 13:30 98 25 97 Facial 30 107 25 98 Bi-Pap 30 04/29/19 13:30 98.2 89 22 126/75 96 2.0 30 04/29/19 11:39 118 23 Nasal Cannula 2.0 28 04/29/19 11:38 119 21 99 Nasal Cannula 2.0 28 118 23 97 04/29/19 11:30 97.9 100 22 116/62 98 04/29/19 11:04 97.9 127 22 116/62 (80) 98 Intake and Output 04/29/19 04/30/19 19:00 07:00 Intake Total 1110 ml Balance 1110 ml Intake Oral 0 ml IV Total 1110 ml # Voids 2 Laboratory Tests 04/29/19 11:45: White Blood Count 17.1H, Red Blood Count 4.55, Hemoglobin 13.4, Hematocrit 39.9 , Mean Corpuscular Volume 88, Mean Corpuscular Hemoglobin 29.5, Mean Corpuscular Hemoglobin Concent 33.6, Red Cell Distribution Width 12.9, Platelet Count 180, Mean Platelet Volume 6.8, Neutrophils (%) (Auto) 57.9, Lymphocytes (% ) (Auto) 31.0, Monocytes (%) (Auto) 8.4, Eosinophils (%) (Auto) 1.6, Basophils ( %) (Auto) 1.0, Sodium Level 145, Potassium Level 3.8, Chloride Level 104, Carbon Dioxide Level 32, Anion Gap 9, Blood Urea Nitrogen 20H, Creatinine 0.9, Estimat Glomerular Filtration Rate , Glucose Level 149H, Lactic Acid Level 4.40H , Calcium Level 9.1, Total Bilirubin 0.4, Aspartate Amino Transf (AST/SGOT) 18, Alanine Aminotransferase (ALT/SGPT) 38, Alkaline Phosphatase 78, Total Creatine Kinase 29, Creatine Kinase MB 1.0, Creatine Kinase MB Relative Index 3.4, Troponin I 0.053, Total Protein 7.1, Albumin 3.2L, Globulin 3.9, Albumin/ Globulin Ratio 0.8L 04/29/19 11:59: Pro-B-Type Natriuretic Peptide 975H 04/29/19 12:30: Urine Color Pale yellow, Urine Appearance Clear, Urine pH 6, Urine Specific [place] 1.005, Urine Protein Negative, Urine Glucose (UA) Negative, Urine Ketones Negative, Urine Blood Negative, Urine Nitrite Negative, Urine Bilirubin Negative, Urine Urobilinogen Normal, Urine Leukocyte Esterase Negative 04/29/19 13:37: Arterial Blood pH 7.367, Arterial Blood Partial Pressure CO2 41.0, Arterial Blood Partial Pressure O2 163.0H, Arterial Blood HCO3 23.0, Arterial Blood Oxygen Saturation 98.3, Arterial Blood Base Excess -2.2L, Avni Test Positive 04/29/19 14:18: Lactic Acid Level 5.20H 04/30/19 05:40: White Blood Count 17.1H, Red Blood Count 3.99L, Hemoglobin 12.1, Hematocrit 34.8L, Mean Corpuscular Volume 87, Mean Corpuscular Hemoglobin 30.3, Mean Corpuscular Hemoglobin Concent 34.7, Red Cell Distribution Width 12.7, Platelet Count 190, Mean Platelet Volume 6.2L, Neutrophils (%) (Auto) , Lymphocytes (%) ( Auto) , Monocytes (%) (Auto) , Eosinophils (%) (Auto) , Basophils (%) (Auto) , Differential Total Cells Counted 100, Neutrophils % (Manual) 88H, Lymphocytes % (Manual) 8L, Monocytes % (Manual) 4, Eosinophils % (Manual) 0, Basophils % ( Manual) 0, Band Neutrophils 0, Platelet Estimate Adequate, Platelet Morphology Normal, Red Blood Cell Morphology Normal, Sodium Level 146H, Potassium Level 4.0 , Chloride Level 110H, Carbon Dioxide Level 26, Anion Gap 10, Blood Urea Nitrogen 21H, Creatinine 0.9, Estimat Glomerular Filtration Rate , Glucose Level 136H, Hemoglobin A1c 5.8, Calcium Level 8.7, Triglycerides Level 63, Cholesterol Level 147, LDL Cholesterol 74, HDL Cholesterol 59, Cholesterol/HDL Ratio 2.5L, Thyroid Stimulating Hormone (TSH) 0.367 Height (Feet): 5 Height (Inches): 4.00 Weight (Pounds): 185 Cardiovascular: normal rate Respiratory/Chest: expiratory wheezing - less Melecio Carranza MD Apr 30, 2019 10:57
--- NOTE | 2019-04-30 11:23 | Consultation ---
History of Present Illness General Date patient seen: Apr 30, 2019 Chief Complaint: Dyspnea/Respdistress Referring physician: Melecio Carranza MD Reason for Consultation: SOB/RF Present Illness HPI This a very pleasant 84-year-old female with history of dementia who presented to [facility] with shortness of breath and respiratory insufficiency admitted for further care and management. Patient is seemingly nonverbal at baseline her eyes are open she is somewhat responsive and tracking but unable to provide any reasonable history. On admission identified to have a deep tissue injury in the sacral region left buttock surgery called to evaluate and assist with care. Patient seen, patient [place], chart reviewed. Patient identified to have significant leukocytosis 17,000 lactic acidosis and abnormal labs. Chest x-ray reviewed. Examination performed with nurse at bedside. Allergies: Coded Allergies: PENICILLINS (Verified Allergy, Unknown, 04/29/19) Medication History Scheduled Aspirin* (Aspirin*), 81 MG ORAL DAILY, (Reported) Donepezil Hcl* (Donepezil Hcl*), 10 MG ORAL DAILY, (Reported) Furosemide* (Lasix*), 40 MG ORAL DAILY, (Reported) Ipratropium/Albuterol Sulfate (DuoNeb 0.5-3(2.5)mg/3ml), 3 ML HHN EVERY 6 HOURS, (Reported) Irbesartan* (Avapro*), 75 MG ORAL QPM, (Reported) Latanoprost* (Xalatan*), 1 DROP BOTH EYES BEDTIME, (Reported) Levothyroxine Sodium* (Levothyroxine Sodium*), 75 MCG ORAL DAILY@0630 Magnesium Hydroxide* (Milk Of Magnesia*), 30 ML ORAL DAILY, (Reported) Memantine Hcl* (Namenda*), 10 MG ORAL BID, (Reported) Prednisone* (Prednisone*), 10 MG ORAL DAILY, (Reported) Simvastatin (Zocor), 20 MG ORAL BEDTIME, (Reported) Scheduled PRN Acetaminophen* (Acetaminophen 325MG Tablet*), 650 MG ORAL Q4H PRN for Mild Pain/ Temp > 100.5, (Reported) Acetaminophen* (Acetaminophen 325MG Tablet*), 650 MG ORAL Q6H PRN for Mild Pain (Pain Scale 1-3), (Reported) Discontinued Medications Amlodipine Besylate* (Amlodipine Besylate*), 5 MG ORAL DAILY, (Reported) Discontinued Reason: Therapy completed Clonazepam* (Klonopin*), 0.5 MG ORAL BID, (Reported) Discontinued Reason: Therapy completed Levothyroxine Sodium* (Levothyroxine Sodium*), 100 MCG ORAL DAILY@0630 Discontinued Reason: Therapy completed Levothyroxine Sodium* (Levothyroxine Sodium*), 75 MCG ORAL DAILY, (Reported) Discontinued Reason: Therapy completed Memantine HCl/Donepezil HCl (Namzaric 28 mg-10 mg Capsule), 1 EACH PO BEDTIME, ( Reported) Discontinued Reason: Therapy completed Simvastatin (Zocor), 20 MG ORAL BEDTIME, (Reported) Discontinued Reason: Therapy completed Zolpidem Tartrate* (Ambien*), 10 MG ORAL HS PRN for Insomnia, (Reported) Discontinued Reason: Therapy completed Patient History Limited by: age, medical condition History Provided By: Medical Record, PMD Healthcare decision maker Resuscitation status Do Not Resuscitate Advanced Directive on File Review of Systems ROS Narrative Unable to obtain given patient's prior medical condition Physical Exam General Appearance: no apparent distress Lines, tubes and drains: peripheral HEENT: atraumatic, anicteric, mucous membranes moist Neck: non-tender, normal alignment, normal inspection Respiratory/Chest: no respiratory distress, no accessory muscle use, decreased breath sounds Cardiovascular/Chest: normal peripheral pulses, normal rate, regular rhythm Abdomen: soft, no organomegaly, no mass Extremities: non-tender, normal inspection, no calf tenderness Skin Exam: warm/dry Neurologic: alert Last 24 Hour Vital Signs Date Time Temp Pulse Resp B/P (MAP) Pulse Ox O2 Delivery O2 Flow Rate FiO2 04/30/19 09:00 Nasal Cannula 2.0 04/30/19 08:43 73 04/30/19 08:39 64 135/56 04/30/19 08:00 2.0 04/30/19 07:57 96.8 64 20 135/56 (82) 94 04/30/19 04:00 98.6 73 20 118/48 (71) 97 04/30/19 04:00 73 04/30/19 04:00 2.0 04/30/19 00:00 78 04/30/19 00:00 97.9 78 19 125/52 (76) 97 04/29/19 21:00 Nasal Cannula 2.0 04/29/19 20:00 2.0 04/29/19 20:00 72 04/29/19 20:00 97.7 72 20 110/63 (79) 98 04/29/19 17:55 98 04/29/19 17:41 94 124/54 04/29/19 17:31 98.1 94 22 124/54 (77) 98 04/29/19 17:30 Nasal Cannula 2.0 04/29/19 16:50 97.8 89 21 126/79 96 Room Air 04/29/19 15:30 98.0 86 21 110/58 96 2.0 30 04/29/19 13:30 98 25 97 Facial 30 107 25 98 Bi-Pap 30 04/29/19 13:30 98.2 89 22 126/75 96 2.0 30 04/29/19 11:39 118 23 Nasal Cannula 2.0 28 04/29/19 11:38 119 21 99 Nasal Cannula 2.0 28 118 23 97 04/29/19 11:30 97.9 100 22 116/62 98 Intake and Output 04/29/19 04/30/19 19:00 07:00 Intake Total 1110 ml Balance 1110 ml Intake Oral 0 ml IV Total 1110 ml # Voids 2 Laboratory Tests Test 04/29/19 11:45 04/29/19 11:59 04/29/19 12:30 04/29/19 13:37 White Blood Count 17.1 K/UL (4.8-10.8) H Red Blood Count 4.55 M/UL (4.20-5.40) Hemoglobin 13.4 G/DL (12.0-16.0) Hematocrit 39.9 % (37.0-47.0) Mean Corpuscular Volume 88 FL (80-99) Mean Corpuscular Hemoglobin 29.5 PG (27.0-31.0) Mean Corpuscular Hemoglobin Concent 33.6 G/DL (32.0-36.0) Red Cell Distribution Width 12.9 % (11.6-14.8) Platelet Count 180 K/UL (150-450) Mean Platelet Volume 6.8 FL (6.5-10.1) Neutrophils (%) (Auto) 57.9 % (45.0-75.0) Lymphocytes (%) (Auto) 31.0 % (20.0-45.0) Monocytes (%) (Auto) 8.4 % (1.0-10.0) Eosinophils (%) (Auto) 1.6 % (0.0-3.0) Basophils (%) (Auto) 1.0 % (0.0-2.0) Sodium Level 145 MMOL/L (136-145) Potassium Level 3.8 MMOL/L (3.5-5.1) Chloride Level 104 MMOL/L (98-107) Carbon Dioxide Level 32 MMOL/L (21-32) Anion Gap 9 mmol/L (5-15) Blood Urea Nitrogen 20 mg/dL (7-18) H Creatinine 0.9 MG/DL (0.55-1.30) Estimat Glomerular Filtration Rate mL/min (>60) Glucose Level 149 MG/DL (74-106) H Lactic Acid Level 4.40 mmol/L (0.4-2.0) H Calcium Level 9.1 MG/DL (8.5-10.1) Total Bilirubin 0.4 MG/DL (0.2-1.0) Aspartate Amino Transf (AST/SGOT) 18 U/L (15-37) Alanine Aminotransferase (ALT/SGPT) 38 U/L (12-78) Alkaline Phosphatase 78 U/L (46-116) Total Creatine Kinase 29 U/L (26-308) Creatine Kinase MB 1.0 NG/ML (0.0-3.6) Creatine Kinase MB Relative Index 3.4 Troponin I 0.053 ng/mL (0.000-0.056) Total Protein 7.1 G/DL (6.4-8.2) Albumin 3.2 G/DL (3.4-5.0) L Globulin 3.9 g/dL Albumin/Globulin Ratio 0.8 (1.0-2.7) L Pro-B-Type Natriuretic Peptide 975 pg/mL (0-125) H Urine Color Pale yellow Urine Appearance Clear Urine pH 6 (4.5-8.0) Urine Specific [place] 1.005 (1.005-1.035) Urine Protein Negative (NEGATIVE) Urine Glucose (UA) Negative (NEGATIVE) Urine Ketones Negative (NEGATIVE) Urine Blood Negative (NEGATIVE) Urine Nitrite Negative (NEGATIVE) Urine Bilirubin Negative (NEGATIVE) Urine Urobilinogen Normal MG/DL (0.0-1.0) Urine Leukocyte Esterase Negative (NEGATIVE) Arterial Blood pH 7.367 (7.350-7.450) Arterial Blood Partial Pressure CO2 41.0 mmHg (35.0-45.0) Arterial Blood Partial Pressure O2 163.0 mmHg (75.0-100.0) H Arterial Blood HCO3 23.0 mmol/L (22.0-26.0) Arterial Blood Oxygen Saturation 98.3 % (95-100) Arterial Blood Base Excess -2.2 (-2-2) L Avni Test Positive Test 04/29/19 14:18 04/30/19 05:40 Lactic Acid Level 5.20 mmol/L (0.66-2.22) H White Blood Count 17.1 K/UL (4.8-10.8) H Red Blood Count 3.99 M/UL (4.20-5.40) L Hemoglobin 12.1 G/DL (12.0-16.0) Hematocrit 34.8 % (37.0-47.0) L Mean Corpuscular Volume 87 FL (80-99) Mean Corpuscular Hemoglobin 30.3 PG (27.0-31.0) Mean Corpuscular Hemoglobin Concent 34.7 G/DL (32.0-36.0) Red Cell Distribution Width 12.7 % (11.6-14.8) Platelet Count 190 K/UL (150-450) Mean Platelet Volume 6.2 FL (6.5-10.1) L Neutrophils (%) (Auto) % (45.0-75.0) Lymphocytes (%) (Auto) % (20.0-45.0) Monocytes (%) (Auto) % (1.0-10.0) Eosinophils (%) (Auto) % (0.0-3.0) Basophils (%) (Auto) % (0.0-2.0) Differential Total Cells Counted 100 Neutrophils % (Manual) 88 % (45-75) H Lymphocytes % (Manual) 8 % (20-45) L Monocytes % (Manual) 4 % (1-10) Eosinophils % (Manual) 0 % (0-3) Basophils % (Manual) 0 % (0-2) Band Neutrophils 0 % (0-8) Platelet Estimate Adequate Platelet Morphology Normal Red Blood Cell Morphology Normal Sodium Level 146 MMOL/L (136-145) H Potassium Level 4.0 MMOL/L (3.5-5.1) Chloride Level 110 MMOL/L (98-107) H Carbon Dioxide Level 26 MMOL/L (21-32) Anion Gap 10 mmol/L (5-15) Blood Urea Nitrogen 21 mg/dL (7-18) H Creatinine 0.9 MG/DL (0.55-1.30) Estimat Glomerular Filtration Rate mL/min (>60) Glucose Level 136 MG/DL (74-106) H Hemoglobin A1c 5.8 % (4.3-6.0) Calcium Level 8.7 MG/DL (8.5-10.1) Triglycerides Level 63 MG/DL (30-150) Cholesterol Level 147 MG/DL (< 200) LDL Cholesterol 74 mg/dL (<100) HDL Cholesterol 59 MG/DL (40-60) Cholesterol/HDL Ratio 2.5 (3.3-4.4) L Thyroid Stimulating Hormone (TSH) 0.367 uiU/mL (0.358-3.740) Microbiology Date/Time Source Procedure Growth Status 04/29/19 12:00 Nasal Nares - Final Complete 04/29/19 12:00 Nasal Nares - Final Complete 04/29/19 15:40 Rectum Received Height (Feet): 5 Height (Inches): 4.00 Weight (Pounds): 185 Medications Current Medications Medications (Trade) Dose Ordered Sig/Hazel Route PRN Reason Start Time Stop Time Status Last Admin Dose Admin Acetaminophen (Tylenol) 650 mg Q4H PRN ORAL Mild Pain (Pain Scale 1-3) 04/29/19 13:45 05/29/19 13:44 Albuterol/ Ipratropium (Albuterol/ Ipratropium) 3 ml Q6HRT HHN 04/29/19 19:00 05/04/19 18:59 Amlodipine Besylate (Norvasc) 5 mg DAILY ORAL 04/29/19 16:30 05/29/19 16:29 04/30/19 08:39 Dextrose (Dextrose 50%) 25 ml Q30M PRN IV Hypoglycemia 04/29/19 13:45 05/29/19 13:44 Dextrose (Dextrose 50%) 50 ml Q30M PRN IV Hypoglycemia 04/29/19 13:45 05/29/19 13:44 Furosemide (Lasix) 40 mg DAILY IV 04/29/19 16:23 05/29/19 16:22 04/30/19 08:40 Heparin Sodium (Porcine) (Heparin 5000 units/ml) 5,000 units Q12HR SUBQ 04/29/19 21:00 05/29/19 20:59 04/30/19 08:39 Levofloxacin 150 ml @ 100 mls/hr Q48H IVPB 04/29/19 20:00 05/06/19 19:59 04/29/19 20:20 Levothyroxine Sodium (Synthroid) 100 mcg DAILY@0630 ORAL 04/30/19 06:30 05/30/19 06:29 04/30/19 06:14 Magnesium Hydroxide (Mom) 30 ml HSPRN PRN ORAL Constipation 04/29/19 16:24 05/29/19 16:23 Methylprednisolone Sodium Succinate (Solu-MEDROL) 40 mg EVERY 12 HOURS IVP 04/29/19 21:00 05/29/19 20:59 04/30/19 08:39 Metronidazole (Flagyl) 500 mg Q6HR ORAL 04/29/19 18:00 05/06/19 17:59 04/30/19 06:14 Vancomycin HCl (Vanco rx to dose) 1 ea DAILY PRN MISC Per rx protocol 04/29/19 14:45 05/29/19 14:44 Vancomycin HCl 500 mg/Sodium Chloride 110 ml @ 110 mls/hr Q12HR IVPB 04/29/19 21:00 05/04/19 20:59 04/30/19 08:40 Assessment/Plan Problem List: (1) Deep tissue injury Assessment & Plan: 84-year-old female presented with a deep tissue injury in the sacrum and left buttock area. No tissue breakdown. Erythema somewhat blanchable extending from the sacral region to the left buttock. No drainage no fluctuance patient expresses some discomfort upon palpation. Need to ensure improvement and appropriate care as high risk for breaking down/worsening at which time care for would be very difficult. Pt presented on admission with DTPI L upper buttocks(L)2.5cm x (W)2.2cm. Base of wound is maroon over Historical scarred area. Non-blanching erythema periwound. R and L heels are both boggy with non-blanchable erythema. No other skin concerns noted. Tx.plan: Apply Moisture Barrier Paste to buttocks. Cover with Optifoam Drsg. Change every 3 days and prn. Apply Cavilon Skin Barrier to both heels. Cover each heel with Optifoam drsg. Change every 7 days and prn. Reposition at least every 2hours or as tolerated. Air mattress Offload heels with pillow Nutritional optimization We will follow with recommendations thank you for let me participate in patient' s care ICD Codes: T14.8XXA - Other injury of unspecified body region, initial encounter SNOMED: 448119740 (2) Leukocytosis Assessment & Plan: Leukocytosis and lactic acidosis work-up currently underway urine clear receiving IV hydration antibiotics per infectious disease ICD Codes: D72.829 - Elevated white blood cell count, unspecified SNOMED: 907365137, 657246010 (3) Lactic acid acidosis ICD Codes: E87.2 - Acidosis SNOMED: 49364451 (4) residential resident ICD Codes: Z59.3 - Problems related to living in residential institution SNOMED: 337662855 Zeb Valle Apr 30, 2019 11:23
[2019-04-30 12:00] VITALS: BP 130/65
--- NOTE | 2019-04-30 14:55 | NUR ---
NURSE NOTES:WOUND CARE NOTES:Pt presented on admission with DTPI L upper buttocks(L)2.5cm x (W)2.2cm. Base of wound is maroon over Historical scarred area. Non-blanching erythema periwound. R and L heels are both boggy with non-blanchable erythema. No other skin concerns noted. Tx.plan: Apply Moisture Barrier Paste to buttocks. Cover with Optifoam Drsg. Change every 3 days and prn. Apply Cavilon Skin Barrier to both heels. Cover each heel with Optifoam drsg. Change every 7 days and prn. Reposition at least every 2hours or as tolerated. Off-load heels with pillow.
[2019-04-30 16:00] VITALS: BP 131/78
--- NOTE | 2019-04-30 16:21 | NUR ---
CASE MANAGEMENT:REVIEW 84 YR OLD FEMALE BIBA FROM [facility] CC: SOB SI: COPD EXACERBATION. LACTIC ACIDOSIS 97.8 127 22 116/62 97% ON BIPAP WBC+17.1 BUN+20 IS: TITRATED O2 TO 2L/NC 2L NS BOLUS IV CEFEPIME IV SOLUMEDROL IV LASIX : TO TELEMETRY DCP: RETURN TO [facility] UPON DISCHARGE
--- NOTE | 2019-04-30 18:13 | Pulmonology Progress Note ---
Assessment/Plan Problems: (1) Lactic acid acidosis (2) Leukocytosis (3) Healthcare-associated pneumonia (4) Diastolic CHF (5) COPD exacerbation (6) Alzheimer's dementia (7) HTN (hypertension) (8) Hypothyroidism (9) Failure to thrive Assessment/Plan 84 F h/o alzheimers dementia, long term resident, COPD, mild diastolic CHF, HTN, hypothyroidism and recent admission @ [facility] with a COPD exacerbation now p/ w respiratory failure likely 2/2 an acute COPD exacerbation +/- an antecedant URI/tracheobronchitis vs early PNA (HAP). With respect to her volume status she has mild DD only and appears slightly fluid overloaded on exam. The exact etiology of her lactic acidosis in unknown but she does not seem to be having a rip roaring infection at this time and review of CS-link shows an elevated LA in the past. Assessment/Plan: Optimize pulmonary hygiene/mobilize as tolerated BiPAP PRN Titrate O2 to keep SaO2 > 90% Dec SM to 30 IV BID and taper RTC and PRN HHN's Levaquin/Flagyl/Vanco (D2) F/U rapid flu Monitor volumes and renal function, cautious diuresis as tolerated DVT Px: Hep SQ Aspiration precautions, PAI GOW MANAGER recs Wound care DNAR Subjective Allergies: Coded Allergies: PENICILLINS (Verified Allergy, Unknown, 04/29/19) Subjective AFVSS O2 needs stable Less cough and wheezing no distress dany PO Objective Last 24 Hour Vital Signs Date Time Temp Pulse Resp B/P (MAP) Pulse Ox O2 Delivery O2 Flow Rate FiO2 04/30/19 16:00 96.6 81 18 131/78 (95) 93 04/30/19 16:00 2.0 04/30/19 15:38 87 04/30/19 13:01 79 18 96 Room Air 21 75 18 93 04/30/19 12:50 75 18 93 Room Air 21 04/30/19 12:00 2.0 04/30/19 12:00 98.2 73 19 130/65 (86) 96 04/30/19 11:38 81 04/30/19 09:00 Nasal Cannula 2.0 04/30/19 08:43 73 04/30/19 08:39 64 135/56 04/30/19 08:00 2.0 04/30/19 07:57 96.8 64 20 135/56 (82) 94 04/30/19 04:00 98.6 73 20 118/48 (71) 97 04/30/19 04:00 73 04/30/19 04:00 2.0 04/30/19 00:00 78 04/30/19 00:00 97.9 78 19 125/52 (76) 97 04/29/19 21:00 Nasal Cannula 2.0 04/29/19 20:00 2.0 04/29/19 20:00 72 04/29/19 20:00 97.7 72 20 110/63 (79) 98 Intake and Output 04/29/19 04/30/19 19:00 07:00 Intake Total 1110 ml Balance 1110 ml Intake Oral 0 ml IV Total 1110 ml # Voids 2 General Appearance: no acute distress, cachetic HEENT: normocephalic, atraumatic, anicteric, mucous membranes moist Respiratory/Chest: crackles/rales, rhonchi Cardiovascular: normal peripheral pulses, normal rate, regular rhythm Abdomen: normal bowel sounds, soft, non tender, no organomegaly, non distended , no mass Extremities: no cyanosis, no clubbing, no edema Microbiology Date/Time Source Procedure Growth Status 04/29/19 12:00 Nasal Nares - Final Complete 04/29/19 12:00 Nasal Nares - Final Complete 04/29/19 15:40 Rectum Received Laboratory Tests 04/30/19 05:40: White Blood Count 17.1H, Red Blood Count 3.99L, Hemoglobin 12.1, Hematocrit 34.8L, Mean Corpuscular Volume 87, Mean Corpuscular Hemoglobin 30.3, Mean Corpuscular Hemoglobin Concent 34.7, Red Cell Distribution Width 12.7, Platelet Count 190, Mean Platelet Volume 6.2L, Neutrophils (%) (Auto) , Lymphocytes (%) ( Auto) , Monocytes (%) (Auto) , Eosinophils (%) (Auto) , Basophils (%) (Auto) , Differential Total Cells Counted 100, Neutrophils % (Manual) 88H, Lymphocytes % (Manual) 8L, Monocytes % (Manual) 4, Eosinophils % (Manual) 0, Basophils % ( Manual) 0, Band Neutrophils 0, Platelet Estimate Adequate, Platelet Morphology Normal, Red Blood Cell Morphology Normal, Sodium Level 146H, Potassium Level 4.0 , Chloride Level 110H, Carbon Dioxide Level 26, Anion Gap 10, Blood Urea Nitrogen 21H, Creatinine 0.9, Estimat Glomerular Filtration Rate , Glucose Level 136H, Hemoglobin A1c 5.8, Calcium Level 8.7, Triglycerides Level 63, Cholesterol Level 147, LDL Cholesterol 74, HDL Cholesterol 59, Cholesterol/HDL Ratio 2.5L, Thyroid Stimulating Hormone (TSH) 0.367 Current Medications Medications (Trade) Dose Ordered Sig/Hazel Route PRN Reason Start Time Stop Time Status Last Admin Dose Admin Acetaminophen (Tylenol) 650 mg Q4H PRN ORAL Mild Pain (Pain Scale 1-3) 04/29/19 13:45 05/29/19 13:44 04/30/19 17:18 Albuterol/ Ipratropium (Albuterol/ Ipratropium) 3 ml Q6HRT HHN 04/29/19 19:00 05/04/19 18:59 04/30/19 12:51 Amlodipine Besylate (Norvasc) 5 mg DAILY ORAL 04/29/19 16:30 05/29/19 16:29 04/30/19 08:39 Dextrose (Dextrose 50%) 25 ml Q30M PRN IV Hypoglycemia 04/29/19 13:45 05/29/19 13:44 Dextrose (Dextrose 50%) 50 ml Q30M PRN IV Hypoglycemia 04/29/19 13:45 05/29/19 13:44 Furosemide (Lasix) 40 mg DAILY IV 04/29/19 16:23 05/29/19 16:22 04/30/19 08:40 Heparin Sodium (Porcine) (Heparin 5000 units/ml) 5,000 units Q12HR SUBQ 04/29/19 21:00 05/29/19 20:59 04/30/19 08:39 Levofloxacin 150 ml @ 100 mls/hr Q48H IVPB 04/29/19 20:00 05/06/19 19:59 04/29/19 20:20 Levothyroxine Sodium (Synthroid) 100 mcg DAILY@0630 ORAL 04/30/19 06:30 05/30/19 06:29 04/30/19 06:14 Magnesium Hydroxide (Mom) 30 ml HSPRN PRN ORAL Constipation 04/29/19 16:24 05/29/19 16:23 Methylprednisolone Sodium Succinate (Solu-MEDROL) 40 mg EVERY 12 HOURS IVP 04/29/19 21:00 05/29/19 20:59 04/30/19 08:39 Metronidazole (Flagyl) 500 mg Q6HR ORAL 04/29/19 18:00 05/06/19 17:59 04/30/19 17:16 Vancomycin HCl (Vanco rx to dose) 1 ea DAILY PRN MISC Per rx protocol 04/29/19 14:45 05/29/19 14:44 Vancomycin HCl 500 mg/Sodium Chloride 110 ml @ 110 mls/hr Q12HR IVPB 04/29/19 21:00 05/04/19 20:59 04/30/19 08:40 Benson Madera MD Apr 30, 2019 18:13
--- NOTE | 2019-04-30 19:23 | NUR ---
HAND-OFF: Report given to DIEGO CORNELL. Pt is awake and stable.
--- NOTE | 2019-04-30 19:30 | NUR ---
NURSE NOTES: Received pt from ANETA Aggarwal, Pt is awake, eyes open on NC at 2 L O2, no SOB, IV access - infiltrated, placed new IV on left forearm 24 g NS lock for abx. Bed is locked and is in the lowest position, side rails x3 for safety, call light within easy reach. will continue to monitor.
[2019-04-30 20:00] VITALS: BP 109/48
[2019-04-30] MEDS ORDERED: DUONEB 0.5-3(2.53 ML HHN (20:02)
[2019-04-30] MEDS ORDERED: ACETAMINOPHEN325 M1 ORAL ×2 (20:02)
[2019-04-30] MEDS ORDERED: MILK OF MA400 MG/51 ORAL (20:02)
[2019-05-01] VITALS: BP 115/52
[2019-05-01] MEDS: Albuterol/Ipratropium 3ml neb HHN SCH ×4 (01:31→19:51)
[2019-05-01 04:27] VITALS: BP 126/46
[2019-05-01] MEDS: metroNIDAZOLE 500mg tab ORAL SCH ×4 (06:00→17:59)
--- NOTE | 2019-05-01 06:41 | NUR ---
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 Will endorse to day shift to notify Melecio Carranza.
--- NOTE | 2019-05-01 07:20 | NUR ---
NURSE NOTES: Received report from Argelia Raman RN. Patient asleep in bed, nonverbal, unable to make needs known and follow commands. Receiving O2 via nasal cannula @ 2L/min, respirations even and unlabored. Female external catheter in place and attached to low, continuous suction. Left forearm 24g saline lock patent and asymptomatic. Bed locked in lowest position with side rails up x 3. All needs attended to. Call light within reach. Will continue to monitor.
--- NOTE | 2019-05-01 07:38 | NUR ---
HAND-OFF: Report given to ANETA Vaz.
[2019-05-01 08:00] VITALS: BP 140/89
[2019-05-01 08:51] LABS: ANION GAP 8 mmol/L (5-15); BLOOD UREA NITROGEN 35 mg/dL (7-18); CALCIUM 9.5 MG/DL (8.5-10.1); CARBON DIOXIDE 31 MMOL/L (21-32); CHLORIDE 109 MMOL/L (98-107); POTASSIUM 3.2 MMOL/L (3.5-5.1); SODIUM 148 MMOL/L (136-145)
[2019-05-01 09:07] LABS: HEMATOCRIT 39.4 % (37.0-47.0); HEMOGLOBIN 13.4 G/DL (12.0-16.0); MEAN CORPUSCULAR VOLUME 87 FL (80-99); PLATELET COUNT 254 K/UL (150-450); RED BLOOD COUNT 4.52 M/UL (4.20-5.40); RED CELL DISTRIBUTION WIDTH 12.6 % (11.6-14.8)
--- NOTE | 2019-05-01 09:07 | NUR ---
NURSE NOTES: Vanco trough result 10.8. Per Felicita Tobar, continue same dose.
[2019-05-01 09:09] LABS: WHITE BLOOD COUNT 26.5 K/UL (4.8-10.8)
[2019-05-01] MEDS: Vancomycin 500 MG in NS 110 ML IVPB SCH ×2 (09:20→22:35)
[2019-05-01] MEDS: Solu-MEDROL 40mg Inj IVP SCH ×2 (09:21→20:57)
[2019-05-01] MEDS: Heparin 5000 units/ml inj SUBQ SCH ×2 (09:23→20:57)
--- NOTE | 2019-05-01 09:37 | NUR ---
NURSE NOTES: Left message on answering service for Dr. Melecio Carranza regarding K 3.2, WBC 26.2, and positive MRSA nares and VRE rectum.
--- NOTE | 2019-05-01 09:40 | Surgery Progress Note ---
Surgery Progress Note Subjective Additional Comments no acute events worsening leukocytosis Objective Last 24 Hour Vital Signs Date Time Temp Pulse Resp B/P (MAP) Pulse Ox O2 Delivery O2 Flow Rate FiO2 05/01/19 09:20 81 140/89 05/01/19 08:00 98.2 81 16 140/89 (106) 95 05/01/19 07:40 95 Nasal Cannula 2.0 28 05/01/19 07:40 75 20 98 Nasal Cannula 2.0 28 70 20 95 05/01/19 04:27 97.8 75 22 126/46 (72) 95 05/01/19 04:21 2.0 05/01/19 04:00 61 05/01/19 01:31 80 18 100 Nasal Cannula 2.0 28 77 18 98 05/01/19 00:00 2.0 05/01/19 00:00 71 05/01/19 00:00 97.9 94 21 115/52 (73) 95 04/30/19 21:29 81 18 Nasal Cannula 2.0 28 04/30/19 21:24 97 Nasal Cannula 2.0 28 04/30/19 21:20 83 18 99 Nasal Cannula 2.0 28 81 18 97 04/30/19 21:00 Nasal Cannula 2.0 04/30/19 20:00 82 04/30/19 20:00 2.0 04/30/19 20:00 98.6 93 21 109/48 (68) 94 04/30/19 16:00 96.6 81 18 131/78 (95) 93 04/30/19 16:00 2.0 04/30/19 15:38 87 04/30/19 13:01 79 18 96 Room Air 21 75 18 93 04/30/19 12:50 75 18 93 Room Air 21 04/30/19 12:00 2.0 04/30/19 12:00 98.2 73 19 130/65 (86) 96 04/30/19 11:38 81 I&O Intake and Output 04/30/19 05/01/19 19:00 07:00 Intake Total 250 ml 140 ml Output Total 1400 ml 1400 ml Balance -1150 ml -1260 ml Intake Oral 140 ml 140 ml IV Total 110 ml Output Urine Total 1400 ml 1400 ml # Voids 3 3 Dressing: dry Wound: clean Cardiovascular: RSR Respiratory: clear, decreased breath sounds Abdomen: soft, present bowel sounds Extremities: no cyanosis Laboratory Tests Test 05/01/19 08:10 White Blood Count 26.5 K/UL (4.8-10.8) #*H Red Blood Count 4.52 M/UL (4.20-5.40) Hemoglobin 13.4 G/DL (12.0-16.0) Hematocrit 39.4 % (37.0-47.0) Mean Corpuscular Volume 87 FL (80-99) Mean Corpuscular Hemoglobin 29.6 PG (27.0-31.0) Mean Corpuscular Hemoglobin Concent 34.0 G/DL (32.0-36.0) Red Cell Distribution Width 12.6 % (11.6-14.8) Platelet Count 254 K/UL (150-450) Mean Platelet Volume 7.4 FL (6.5-10.1) Neutrophils (%) (Auto) % (45.0-75.0) Lymphocytes (%) (Auto) % (20.0-45.0) Monocytes (%) (Auto) % (1.0-10.0) Eosinophils (%) (Auto) % (0.0-3.0) Basophils (%) (Auto) % (0.0-2.0) Neutrophils % (Manual) Pending Lymphocytes % (Manual) Pending Platelet Estimate Pending Platelet Morphology Pending Sodium Level 148 MMOL/L (136-145) H Potassium Level 3.2 MMOL/L (3.5-5.1) L Chloride Level 109 MMOL/L (98-107) H Carbon Dioxide Level 31 MMOL/L (21-32) Anion Gap 8 mmol/L (5-15) Blood Urea Nitrogen 35 mg/dL (7-18) H Creatinine 1.0 MG/DL (0.55-1.30) Estimat Glomerular Filtration Rate mL/min (>60) Glucose Level 175 MG/DL (74-106) H Calcium Level 9.5 MG/DL (8.5-10.1) Vancomycin Level Trough 10.8 ug/mL (5.0-12.0) Plan Problems: (1) Deep tissue injury Assessment & Plan: 84-year-old female presented with a deep tissue injury in the sacrum and left buttock area. No tissue breakdown. Erythema somewhat blanchable extending from the sacral region to the left buttock. No drainage no fluctuance patient expresses some discomfort upon palpation. Need to ensure improvement and appropriate care as high risk for breaking down/worsening at which time care for would be very difficult. Pt presented on admission with DTPI L upper buttocks(L)2.5cm x (W)2.2cm. Base of wound is maroon over Historical scarred area. Non-blanching erythema periwound. R and L heels are both boggy with non-blanchable erythema. No other skin concerns noted. Tx.plan: Apply Moisture Barrier Paste to buttocks. Cover with Optifoam Drsg. Change every 3 days and prn. Apply Cavilon Skin Barrier to both heels. Cover each heel with Optifoam drsg. Change every 7 days and prn. Reposition at least every 2hours or as tolerated. Air mattress Offload heels with pillow Nutritional optimization We will follow with recommendations thank you for let me participate in patient' s care (2) Leukocytosis Assessment & Plan: Leukocytosis and lactic acidosis work-up currently underway urine clear receiving IV hydration antibiotics per infectious disease (3) Lactic acid acidosis (4) group home resident Zeb Valle May 01, 2019 09:40
--- NOTE | 2019-05-01 09:48 | NUR ---
NURSE NOTES: Received call back from Dr. Melecio Carranza and received telephone order for 40 meq K-Dur PO q 4 hours x [address] 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
[2019-05-01 12:00] VITALS: BP 137/63
--- NOTE | 2019-05-01 15:13 | General Progress Note ---
Assessment/Plan Problem List: (1) Acute respiratory failure with hypoxia ICD Codes: J96.01 - Acute respiratory failure with hypoxia SNOMED: 73722291, 428412926 (2) HTN (hypertension) ICD Codes: I10 - Essential (primary) hypertension SNOMED: 66013102 (3) Diastolic CHF ICD Codes: I50.30 - Unspecified diastolic (congestive) heart failure SNOMED: 80992046, 591530788 (4) COPD exacerbation ICD Codes: J44.1 - Chronic obstructive pulmonary disease with (acute) exacerbation SNOMED: 616248453 (5) Alzheimer's dementia ICD Codes: G30.9 - Alzheimer's disease, unspecified SNOMED: 25693328 (6) Hypothyroidism ICD Codes: E03.9 - Hypothyroidism, unspecified SNOMED: 36785654 Assessment/Plan: diuresis abxs Bronchodilators IV steroids Discussed with RN Subjective Allergies: Coded Allergies: PENICILLINS (Verified Allergy, Unknown, 04/29/19) Subjective looks better Objective Last 24 Hour Vital Signs Date Time Temp Pulse Resp B/P (MAP) Pulse Ox O2 Delivery O2 Flow Rate FiO2 05/01/19 13:18 68 20 99 Nasal Cannula 2.0 28 60 20 94 05/01/19 12:00 98.0 71 18 137/63 (87) 95 05/01/19 12:00 2.0 05/01/19 11:54 66 05/01/19 10:31 Nasal Cannula 2.0 05/01/19 09:20 81 140/89 05/01/19 08:00 2.0 05/01/19 08:00 98.2 81 16 140/89 (106) 95 05/01/19 07:52 61 05/01/19 07:40 95 Nasal Cannula 2.0 28 05/01/19 07:40 75 20 98 Nasal Cannula 2.0 28 70 20 95 05/01/19 04:27 97.8 75 22 126/46 (72) 95 05/01/19 04:21 2.0 05/01/19 04:00 61 05/01/19 01:31 80 18 100 Nasal Cannula 2.0 28 77 18 98 05/01/19 00:00 2.0 05/01/19 00:00 71 05/01/19 00:00 97.9 94 21 115/52 (73) 95 04/30/19 21:29 81 18 Nasal Cannula 2.0 28 04/30/19 21:24 97 Nasal Cannula 2.0 28 04/30/19 21:20 83 18 99 Nasal Cannula 2.0 28 81 18 97 04/30/19 21:00 Nasal Cannula 2.0 04/30/19 20:00 82 04/30/19 20:00 2.0 04/30/19 20:00 98.6 93 21 109/48 (68) 94 04/30/19 16:00 96.6 81 18 131/78 (95) 93 04/30/19 16:00 2.0 04/30/19 15:38 87 Intake and Output 04/30/19 05/01/19 19:00 07:00 Intake Total 250 ml 140 ml Output Total 1400 ml 1400 ml Balance -1150 ml -1260 ml Intake Oral 140 ml 140 ml IV Total 110 ml Output Urine Total 1400 ml 1400 ml # Voids 3 3 Laboratory Tests 05/01/19 08:10: White Blood Count 26.5#*H, Red Blood Count 4.52, Hemoglobin 13.4, Hematocrit 39.4, Mean Corpuscular Volume 87, Mean Corpuscular Hemoglobin 29.6, Mean Corpuscular Hemoglobin Concent 34.0, Red Cell Distribution Width 12.6, Platelet Count 254, Mean Platelet Volume 7.4, Neutrophils (%) (Auto) , Lymphocytes (%) ( Auto) , Monocytes (%) (Auto) , Eosinophils (%) (Auto) , Basophils (%) (Auto) , Differential Total Cells Counted 100, Neutrophils % (Manual) 84H, Lymphocytes % (Manual) 12L, Monocytes % (Manual) 4, Eosinophils % (Manual) 0, Basophils % ( Manual) 0, Band Neutrophils 0, Platelet Estimate Adequate, Platelet Morphology Normal, Red Blood Cell Morphology Normal, Sodium Level 148H, Potassium Level 3.2L, Chloride Level 109H, Carbon Dioxide Level 31, Anion Gap 8, Blood Urea Nitrogen 35H, Creatinine 1.0, Estimat Glomerular Filtration Rate , Glucose Level 175H, Calcium Level 9.5, Vancomycin Level Trough 10.8 Height (Feet): 5 Height (Inches): 4.00 Weight (Pounds): 185 Cardiovascular: normal rate Respiratory/Chest: lungs clear Edema: no edema noted Generalized Melecio Carranza MD May 01, 2019 15:13
[2019-05-01 16:00] VITALS: BP 116/79
--- NOTE | 2019-05-01 17:11 | NUR ---
HAND-OFF: Report given to ANETA Cosme.
--- NOTE | 2019-05-01 19:24 | NUR ---
HAND-OFF: Report given to Dayan/Marissa. pt in bed in stable condition.
--- NOTE | 2019-05-01 19:35 | NUR ---
NURSE NOTES: Received report from ANETA Lee. Patient is in bed, awake and responsive. Breathing regular and unlabored with no S/S of SOB noted. Patient remains on a 2L NC. IV access on the RFA 20G, TKO. Patient is primarily Nepalese speaking, able to communicate with the patient. Patient denies any pain or discomfort at this time. Bed in the lowest position, breaks engaged, and call light is within reach. All other needs attended to, patient remains in stable condition, will continue to monitor.
[2019-05-01 20:00] VITALS: BP 130/52
--- NOTE | 2019-05-01 20:34 | Pulmonology Progress Note ---
Assessment/Plan Assessment/Plan (1) Lactic acid acidosis (2) Leukocytosis (3) Healthcare-associated pneumonia (4) Diastolic CHF (5) COPD exacerbation (6) Alzheimer's dementia (7) HTN (hypertension) (8) Hypothyroidism (9) Failure to thrive Assessment/Plan 84 F h/o alzheimers dementia, intermediate resident, COPD, mild diastolic CHF, HTN, hypothyroidism and recent admission @ [facility] with a COPD exacerbation now p/ w respiratory failure likely 2/2 an acute COPD exacerbation +/- an antecedant URI/tracheobronchitis vs early PNA (HAP). With respect to her volume status she has mild DD only and appears slightly fluid overloaded on exam. The exact etiology of her lactic acidosis in unknown but she does not seem to be having a rip roaring infection at this time and review of CS-link shows an elevated LA in the past. 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 care DNAR Subjective ROS Limited/Unobtainable: Yes Allergies: Coded Allergies: PENICILLINS (Verified Allergy, Unknown, 04/29/19) Subjective cough and shortness of breathnoted no cp nv or bleeding on o2 Objective Last 24 Hour Vital Signs Date Time Temp Pulse Resp B/P (MAP) Pulse Ox O2 Delivery O2 Flow Rate FiO2 05/01/19 19:53 47 20 99 Nasal Cannula 2.0 28 45 20 94 05/01/19 19:51 95 Nasal Cannula 2.0 28 05/01/19 16:00 97.8 79 18 116/79 (91) 95 05/01/19 16:00 70 05/01/19 16:00 2.0 05/01/19 13:18 68 20 99 Nasal Cannula 2.0 28 60 20 94 05/01/19 12:00 98.0 71 18 137/63 (87) 95 05/01/19 12:00 2.0 05/01/19 11:54 66 05/01/19 10:31 Nasal Cannula 2.0 05/01/19 09:20 81 140/89 05/01/19 08:00 2.0 05/01/19 08:00 98.2 81 16 140/89 (106) 95 05/01/19 07:52 61 05/01/19 07:40 95 Nasal Cannula 2.0 28 05/01/19 07:40 75 20 98 Nasal Cannula 2.0 28 70 20 95 05/01/19 04:27 97.8 75 22 126/46 (72) 95 05/01/19 04:21 2.0 05/01/19 04:00 61 05/01/19 01:31 80 18 100 Nasal Cannula 2.0 28 77 18 98 05/01/19 00:00 2.0 05/01/19 00:00 71 05/01/19 00:00 97.9 94 21 115/52 (73) 95 04/30/19 21:29 81 18 Nasal Cannula 2.0 28 04/30/19 21:24 97 Nasal Cannula 2.0 28 04/30/19 21:20 83 18 99 Nasal Cannula 2.0 28 81 18 97 04/30/19 21:00 Nasal Cannula 2.0 Intake and Output 04/30/19 05/01/19 19:00 07:00 Intake Total 250 ml 140 ml Output Total 1400 ml 1400 ml Balance -1150 ml -1260 ml Intake Oral 140 ml 140 ml IV Total 110 ml Output Urine Total 1400 ml 1400 ml # Voids 3 3 General Appearance: WD/WN Respiratory/Chest: crackles/rales, rhonchi Cardiovascular: normal rate, regular rhythm, edema Abdomen: soft, non tender, non distended Neurologic/Psychiatric: abnormal gait, disoriented Lymphatic: no neck adenopathy Musculoskeletal: normal muscle bulk Microbiology Date/Time Source Procedure Growth Status 04/29/19 11:45 Blood Blood Culture - Preliminary NO GROWTH AFTER 24 HOURS Resulted 04/29/19 11:30 Blood Blood Culture - Preliminary NO GROWTH AFTER 24 HOURS Resulted 04/29/19 15:40 Nasal Nares Left MRSA Culture - Final Staphylococcus Aureus - Mrsa Complete 04/29/19 12:00 Nasal Nares - Final Complete 04/29/19 12:00 Nasal Nares - Final Complete 04/29/19 15:40 Rectum VRE Culture - Final Enterococcus Faecalis - Vre Complete Laboratory Tests 05/01/19 08:10: White Blood Count 26.5#*H, Red Blood Count 4.52, Hemoglobin 13.4, Hematocrit 39.4, Mean Corpuscular Volume 87, Mean Corpuscular Hemoglobin 29.6, Mean Corpuscular Hemoglobin Concent 34.0, Red Cell Distribution Width 12.6, Platelet Count 254, Mean Platelet Volume 7.4, Neutrophils (%) (Auto) , Lymphocytes (%) ( Auto) , Monocytes (%) (Auto) , Eosinophils (%) (Auto) , Basophils (%) (Auto) , Differential Total Cells Counted 100, Neutrophils % (Manual) 84H, Lymphocytes % (Manual) 12L, Monocytes % (Manual) 4, Eosinophils % (Manual) 0, Basophils % ( Manual) 0, Band Neutrophils 0, Platelet Estimate Adequate, Platelet Morphology Normal, Red Blood Cell Morphology Normal, Sodium Level 148H, Potassium Level 3.2L, Chloride Level 109H, Carbon Dioxide Level 31, Anion Gap 8, Blood Urea Nitrogen 35H, Creatinine 1.0, Estimat Glomerular Filtration Rate , Glucose Level 175H, Calcium Level 9.5, Vancomycin Level Trough 10.8 Current Medications Medications (Trade) Dose Ordered Sig/Hazel Route PRN Reason Start Time Stop Time Status Last Admin Dose Admin Acetaminophen (Tylenol) 650 mg Q4H PRN ORAL Mild Pain (Pain Scale 1-3) 04/29/19 13:45 05/29/19 13:44 04/30/19 17:18 Albuterol/ Ipratropium (Albuterol/ Ipratropium) 3 ml Q6HRT HHN 04/29/19 19:00 05/04/19 18:59 05/01/19 19:51 Amlodipine Besylate (Norvasc) 5 mg DAILY ORAL 04/29/19 16:30 05/29/19 16:29 05/01/19 09:20 Dextrose (Dextrose 50%) 25 ml Q30M PRN IV Hypoglycemia 04/29/19 13:45 05/29/19 13:44 Dextrose (Dextrose 50%) 50 ml Q30M PRN IV Hypoglycemia 04/29/19 13:45 05/29/19 13:44 Furosemide (Lasix) 40 mg DAILY IV 04/29/19 16:23 05/29/19 16:22 05/01/19 09:20 Heparin Sodium (Porcine) (Heparin 5000 units/ml) 5,000 units Q12HR SUBQ 04/29/19 21:00 3/7/20 20:59 05/01/19 09:23 Levofloxacin 150 ml @ 100 mls/hr Q48H IVPB 04/29/19 20:00 05/06/19 19:59 04/29/19 20:20 Levothyroxine Sodium (Synthroid) 100 mcg DAILY@0630 ORAL 04/30/19 06:30 05/30/19 06:29 05/01/19 06:40 Magnesium Hydroxide (Mom) 30 ml HSPRN PRN ORAL Constipation 04/29/19 16:24 05/29/19 16:23 Methylprednisolone Sodium Succinate (Solu-MEDROL) 30 mg EVERY 12 HOURS IVP 04/30/19 21:00 05/29/19 20:59 05/01/19 09:21 Metronidazole (Flagyl) 500 mg Q6HR ORAL 04/29/19 18:00 05/06/19 17:59 05/01/19 17:59 Vancomycin HCl (Vanco rx to dose) 1 ea DAILY PRN MISC Per rx protocol 04/29/19 14:45 05/29/19 14:44 Vancomycin HCl 500 mg/Sodium Chloride 110 ml @ 110 mls/hr Q12HR IVPB 04/29/19 21:00 05/04/19 20:59 05/01/19 09:20 Anabella Roche DO May 01, 2019 20:34
[2019-05-02] VITALS: BP 125/61
[2019-05-02] MEDS: metroNIDAZOLE 500mg tab ORAL SCH ×4 (00:30→17:36)
[2019-05-02] MEDS: Albuterol/Ipratropium 3ml neb HHN SCH ×4 (01:25→19:00)
[2019-05-02 04:00] VITALS: BP 119/48
--- NOTE | 2019-05-02 07:43 | NUR ---
HAND-OFF: Report given to ANETA Lee. Patient in stable condition.
[2019-05-02 08:15] VITALS: BP 109/50
--- NOTE | 2019-05-02 08:17 | NUR ---
NURSE NOTES: pt awake in bed, watching TV, pt will be help to have breakfast soon. 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 Call light within reach. Bed is locked and in lowest position. Will continue to monitor pt and follow plans of care.
[2019-05-02] MEDS: Solu-MEDROL 40mg Inj IVP SCH ×2 (08:54→22:00)
[2019-05-02] MEDS: Heparin 5000 units/ml inj SUBQ SCH ×2 (08:59→22:00)
[2019-05-02] MEDS: Vancomycin 500 MG in NS 110 ML IVPB SCH ×2 (09:00→21:59)
[2019-05-02 12:00] VITALS: BP 140/86
--- NOTE | 2019-05-02 14:01 | General Progress Note ---
Assessment/Plan Problem List: (1) Acute respiratory failure with hypoxia ICD Codes: J96.01 - Acute respiratory failure with hypoxia SNOMED: 58340846, 791034693 (2) HTN (hypertension) ICD Codes: I10 - Essential (primary) hypertension SNOMED: 88248916 (3) Diastolic CHF ICD Codes: I50.30 - Unspecified diastolic (congestive) heart failure SNOMED: 09777958, 459335116 (4) COPD exacerbation ICD Codes: J44.1 - Chronic obstructive pulmonary disease with (acute) exacerbation SNOMED: 511921428 (5) Alzheimer's dementia ICD Codes: G30.9 - Alzheimer's disease, unspecified SNOMED: 02115935 (6) Hypothyroidism ICD Codes: E03.9 - Hypothyroidism, unspecified SNOMED: 41527186 Assessment/Plan: diuresis abxs Bronchodilators IV steroids Discussed with RN RAVI in 1-2 days Subjective Allergies: Coded Allergies: PENICILLINS (Verified Allergy, Unknown, 04/29/19) Subjective looks better Objective Last 24 Hour Vital Signs Date Time Temp Pulse Resp B/P (MAP) Pulse Ox O2 Delivery O2 Flow Rate FiO2 05/02/19 13:16 77 20 98 Nasal Cannula 2.0 28 74 20 95 05/02/19 08:54 65 109/50 05/02/19 08:15 97.7 65 20 109/50 (69) 92 05/02/19 08:00 2.0 05/02/19 07:38 96 Nasal Cannula 2.0 28 05/02/19 07:38 76 20 99 Nasal Cannula 2.0 28 78 20 96 05/02/19 04:00 77 05/02/19 04:00 97.5 82 19 119/48 (71) 100 05/02/19 04:00 2.0 05/02/19 01:28 65 20 99 Nasal Cannula 2.0 28 62 20 99 05/02/19 00:00 2.0 05/02/19 00:00 70 05/02/19 00:00 98.1 76 19 125/61 (82) 91 05/01/19 21:00 Nasal Cannula 2.0 05/01/19 20:00 2.0 05/01/19 20:00 79 05/01/19 20:00 98.4 89 20 130/52 (78) 96 05/01/19 19:53 47 20 99 Nasal Cannula 2.0 28 45 20 94 05/01/19 19:51 95 Nasal Cannula 2.0 28 05/01/19 16:00 97.8 79 18 116/79 (91) 95 05/01/19 16:00 70 05/01/19 16:00 2.0 Intake and Output 05/01/19 05/02/19 19:00 07:00 Intake Total 510 ml Output Total 700 ml 200 ml Balance -190 ml -200 ml Intake Oral 400 ml IV Total 110 ml Output Urine Total 700 ml 200 ml # Voids 1 # Bowel Movements 1 Height (Feet): 5 Height (Inches): 4.00 Weight (Pounds): 185 Cardiovascular: normal rate Respiratory/Chest: lungs clear Melecio Carranza MD May 02, 2019 14:01
[2019-05-02 16:00] VITALS: BP 119/48
--- NOTE | 2019-05-02 19:47 | NUR ---
HAND-OFF: Report given to Yareli/ANETA pt in stable condition.
--- NOTE | 2019-05-02 19:49 | NUR ---
NURSE NOTES: Received report from ANETA Lee. Patient is in bed, awake and tracks RN with eyes, but incomprehensible speech, doesnt understand, Breathing regular and unlabored with no S/S of SOB noted, on 2L NC. IV access on the RFA 20G, TKO. Patient is primarily [place] Island[place] speaking, Per FLACC, O and no s/sx discomfort noted at this time. Bed is in the lowest position, locked and call light is within reach, bed alarm on, pt bedbound. All needs attended to, patient remains in stable condition, will continue to monitor
[2019-05-02 20:00] VITALS: BP 152/72
--- NOTE | 2019-05-02 22:04 | Pulmonology Progress Note ---
Assessment/Plan Assessment/Plan (1) Lactic acid acidosis (2) Leukocytosis (3) Healthcare-associated pneumonia (4) Diastolic CHF (5) COPD exacerbation (6) Alzheimer's dementia (7) HTN (hypertension) (8) Hypothyroidism (9) Failure to thrive Assessment/Plan 84 F h/o alzheimers dementia, care home resident, COPD, mild diastolic CHF, HTN, hypothyroidism and recent admission @ [facility] with a COPD exacerbation now p/ w respiratory failure likely 2/2 an acute COPD exacerbation +/- an antecedant URI/tracheobronchitis vs early PNA (HAP). With respect to her volume status she has mild DD only and appears slightly fluid overloaded on exam. The exact etiology of her lactic acidosis in unknown but she does not seem to be having a rip roaring infection at this time and review of CS-link shows an elevated LA in the past. 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 DNAR Subjective ROS Limited/Unobtainable: Yes Allergies: Coded Allergies: PENICILLINS (Verified Allergy, Unknown, 04/29/19) Subjective no events over night or today cough and shortness of breath noted no cp nv or bleeding on o2 Objective Last 24 Hour Vital Signs Date Time Temp Pulse Resp B/P (MAP) Pulse Ox O2 Delivery O2 Flow Rate FiO2 05/02/19 20:00 2.0 05/02/19 20:00 98.2 75 24 152/72 (98) 95 05/02/19 16:00 96.7 80 19 119/48 (71) 93 05/02/19 16:00 2.0 05/02/19 16:00 98 05/02/19 13:16 77 20 98 Nasal Cannula 2.0 28 74 20 95 05/02/19 12:00 97.5 81 18 140/86 (104) 93 05/02/19 12:00 79 05/02/19 12:00 2.0 05/02/19 09:00 Nasal Cannula 2.0 05/02/19 08:54 65 109/50 05/02/19 08:15 97.7 65 20 109/50 (69) 92 05/02/19 08:00 79 05/02/19 08:00 2.0 05/02/19 07:38 96 Nasal Cannula 2.0 28 05/02/19 07:38 76 20 99 Nasal Cannula 2.0 28 78 20 96 05/02/19 04:00 77 05/02/19 04:00 97.5 82 19 119/48 (71) 100 05/02/19 04:00 2.0 05/02/19 01:28 65 20 99 Nasal Cannula 2.0 28 62 20 99 05/02/19 00:00 2.0 05/02/19 00:00 70 05/02/19 00:00 98.1 76 19 125/61 (82) 91 Intake and Output 05/01/19 05/02/19 19:00 07:00 Intake Total 510 ml Output Total 700 ml 200 ml Balance -190 ml -200 ml Intake Oral 400 ml IV Total 110 ml Output Urine Total 700 ml 200 ml # Voids 1 # Bowel Movements 1 General Appearance: WD/WN HEENT: atraumatic Respiratory/Chest: rhonchi Cardiovascular: murmur diastolic, murmur systolic, edema Abdomen: non distended, no mass Neurologic/Psychiatric: disoriented Current Medications Medications (Trade) Dose Ordered Sig/Hazel Route PRN Reason Start Time Stop Time Status Last Admin Dose Admin Acetaminophen (Tylenol) 650 mg Q4H PRN ORAL Mild Pain (Pain Scale 1-3) 04/29/19 13:45 05/29/19 13:44 04/30/19 17:18 Albuterol/ Ipratropium (Albuterol/ Ipratropium) 3 ml Q6HRT HHN 04/29/19 19:00 05/04/19 18:59 05/02/19 13:19 Amlodipine Besylate (Norvasc) 5 mg DAILY ORAL 04/29/19 16:30 05/29/19 16:29 05/02/19 08:54 Dextrose (Dextrose 50%) 25 ml Q30M PRN IV Hypoglycemia 04/29/19 13:45 05/29/19 13:44 Dextrose (Dextrose 50%) 50 ml Q30M PRN IV Hypoglycemia 04/29/19 13:45 05/29/19 13:44 Furosemide (Lasix) 40 mg DAILY ORAL 05/03/19 09:00 06/02/19 08:59 Heparin Sodium (Porcine) (Heparin 5000 units/ml) 5,000 units Q12HR SUBQ 04/29/19 21:00 05/29/19 20:59 05/02/19 22:00 Levofloxacin (Levaquin) 750 mg Q48H ORAL 05/03/19 20:00 05/10/19 19:59 Levothyroxine Sodium (Synthroid) 100 mcg DAILY@0630 ORAL 04/30/19 06:30 05/30/19 06:29 05/02/19 06:06 Magnesium Hydroxide (Mom) 30 ml HSPRN PRN ORAL Constipation 04/29/19 16:24 05/29/19 16:23 Methylprednisolone Sodium Succinate (Solu-MEDROL) 30 mg EVERY 12 HOURS IVP 04/30/19 21:00 05/29/19 20:59 05/02/19 22:00 Metronidazole (Flagyl) 500 mg Q6HR ORAL 04/29/19 18:00 05/06/19 17:59 05/02/19 17:36 Vancomycin HCl (Vanco rx to dose) 1 ea DAILY PRN MISC Per rx protocol 04/29/19 14:45 05/29/19 14:44 Vancomycin HCl 500 mg/Sodium Chloride 110 ml @ 110 mls/hr Q12HR IVPB 04/29/19 21:00 05/04/19 20:59 05/02/19 21:59 Anabella Roche DO May 02, 2019 22:04
[2019-05-03] VITALS: BP 150/68
[2019-05-03] MEDS: Albuterol/Ipratropium 3ml neb HHN SCH ×4 (01:54→18:51)
[2019-05-03 04:06] VITALS: BP 153/64
[2019-05-03] MEDS: metroNIDAZOLE 500mg tab ORAL SCH ×3 (06:53→12:30)
[2019-05-03 07:34] LABS: HEMATOCRIT 38.4 % (37.0-47.0); HEMOGLOBIN 13.1 G/DL (12.0-16.0); MEAN CORPUSCULAR VOLUME 88 FL (80-99); PLATELET COUNT 233 K/UL (150-450); RED BLOOD COUNT 4.37 M/UL (4.20-5.40); RED CELL DISTRIBUTION WIDTH 12.8 % (11.6-14.8); WHITE BLOOD COUNT 18.6 K/UL (4.8-10.8)
[2019-05-03 07:46] LABS: ANION GAP 7 mmol/L (5-15); BLOOD UREA NITROGEN 44 mg/dL (7-18); CALCIUM 9.2 MG/DL (8.5-10.1); CARBON DIOXIDE 30 MMOL/L (21-32); CHLORIDE 113 MMOL/L (98-107); POTASSIUM 4.1 MMOL/L (3.5-5.1); SODIUM 150 MMOL/L (136-145)
--- NOTE | 2019-05-03 07:53 | NUR ---
HAND-OFF: Report given to ANETA Aggarwal. Addendum: 05/03/19 at 0754 by Evangelina Raman RN Report given to ANETA Barrios
--- NOTE | 2019-05-03 07:54 | NUR ---
HAND-OFF: Report given to ANETA Barrios.
--- NOTE | 2019-05-03 07:59 | NUR ---
NURSE NOTES: Received report from ANETA Hutchinson. Pt in bed, nonverbal, tracts with eye, arousable to verbal stimuli, pt is calm, respiration unlabored on 2LNC, no appears of pt, vitals obtained by TIMO Edouard, assessment done, see flowsheet, bed in lowest position, call light within reach, IV site left FA 24g occluded and and removed intact.
[2019-05-03 08:00] VITALS: BP 135/68
[2019-05-03] MEDS: Furosemide 40mg tab ORAL SCH (09:26)
[2019-05-03] MEDS: Solu-MEDROL 40mg Inj IVP SCH (09:26)
[2019-05-03] MEDS: Heparin 5000 units/ml inj SUBQ SCH ×2 (09:28→22:10)
[2019-05-03] MEDS: Vancomycin 500 MG in NS 110 ML IVPB SCH (09:31)
--- NOTE | 2019-05-03 10:07 | NUR ---
RADIOLOGY: PCXR COMPLETED 0915HRS. NF
[2019-05-03 12:00] VITALS: BP 130/78
--- NOTE | 2019-05-03 12:22 | NUR ---
CASE MANAGEMENT:REVIEW 05/03/19 SI: ACUTE RESPIRATORY FAILURE COPD. CHF 96.8 65 18 135/68 100% ON 2L/NC WBC+18.6 NA+150 BUN+44 IS: IV SOLUMEDROL Q12 IV VANCOMYCIN Q12 IVF@75/HR LEVAQUIN PO Q48 LASIX PO QD HEPARIN SQ Q12 DUONEB HHN Q6HRS NORVASC PO QD : TELEMETRY STATUS DCP: FROM [facility]
--- NOTE | 2019-05-03 12:27 | NUR ---
DISCHARGE PLANNING DISCHARGE PLANNING DISCUSSED WITH DR Justin CAMACHO OLD TESTAMENT PROFESSOR FAXED CLINICALS TO [facility] ANTICIPATE DISCHARGE TOMORROW
--- NOTE | 2019-05-03 12:27 | General Progress Note ---
Assessment/Plan Problem List: (1) Acute respiratory failure with hypoxia ICD Codes: J96.01 - Acute respiratory failure with hypoxia SNOMED: 01732491, 716797915 (2) HTN (hypertension) ICD Codes: I10 - Essential (primary) hypertension SNOMED: 10154476 (3) Diastolic CHF ICD Codes: I50.30 - Unspecified diastolic (congestive) heart failure SNOMED: 41103555, 458874542 (4) COPD exacerbation ICD Codes: J44.1 - Chronic obstructive pulmonary disease with (acute) exacerbation SNOMED: 570083284 (5) Alzheimer's dementia ICD Codes: G30.9 - Alzheimer's disease, unspecified SNOMED: 73039374 (6) Hypothyroidism ICD Codes: E03.9 - Hypothyroidism, unspecified SNOMED: 23963866 (7) Hypernatremia ICD Codes: E87.0 - Hyperosmolality and hypernatremia SNOMED: 501866375 Assessment/Plan: start D5W abxs Bronchodilators taper steroids follow Labs Subjective Allergies: Coded Allergies: PENICILLINS (Verified Allergy, Unknown, 04/29/19) Subjective In NAD Objective Last 24 Hour Vital Signs Date Time Temp Pulse Resp B/P (MAP) Pulse Ox O2 Delivery O2 Flow Rate FiO2 05/03/19 12:00 2.0 05/03/19 09:26 65 135/68 05/03/19 08:14 95 Nasal Cannula 2.0 28 05/03/19 08:00 2.0 05/03/19 08:00 96.8 65 18 135/68 (90) 100 05/03/19 07:59 63 22 97 Nasal Cannula 2.0 28 65 22 96 05/03/19 07:54 Nasal Cannula 2.0 05/03/19 07:39 67 05/03/19 04:06 97.5 67 20 153/64 (93) 94 05/03/19 04:00 2.0 05/03/19 04:00 61 05/03/19 01:55 60 20 98 Nasal Cannula 2.0 28 55 20 97 05/03/19 00:00 97.9 69 20 150/68 (95) 95 05/03/19 00:00 53 05/03/19 00:00 2.0 05/02/19 21:00 Nasal Cannula 2.0 05/02/19 20:00 85 05/02/19 20:00 95 Nasal Cannula 2.0 28 05/02/19 20:00 2.0 05/02/19 20:00 98.2 75 24 152/72 (98) 95 05/02/19 16:00 96.7 80 19 119/48 (71) 93 05/02/19 16:00 2.0 05/02/19 16:00 98 05/02/19 13:16 77 20 98 Nasal Cannula 2.0 28 74 20 95 Intake and Output 05/02/19 05/03/19 19:00 07:00 Intake Total 340 ml Output Total 800 ml 600 ml Balance -460 ml -600 ml Intake Oral 340 ml Output Urine Total 800 ml 600 ml Laboratory Tests 05/03/19 06:50: White Blood Count 18.6H, Red Blood Count 4.37, Hemoglobin 13.1, Hematocrit 38.4 , Mean Corpuscular Volume 88, Mean Corpuscular Hemoglobin 29.9, Mean Corpuscular Hemoglobin Concent 34.1, Red Cell Distribution Width 12.8, Platelet Count 233, Mean Platelet Volume 6.8, Neutrophils (%) (Auto) , Lymphocytes (%) ( Auto) , Monocytes (%) (Auto) , Eosinophils (%) (Auto) , Basophils (%) (Auto) , Differential Total Cells Counted 100, Neutrophils % (Manual) 84H, Lymphocytes % (Manual) 11L, Monocytes % (Manual) 5, Eosinophils % (Manual) 0, Basophils % ( Manual) 0, Band Neutrophils 0, Platelet Estimate Adequate, Platelet Morphology Normal, Red Blood Cell Morphology Normal, Sodium Level 150H, Potassium Level 4.1 , Chloride Level 113H, Carbon Dioxide Level 30, Anion Gap 7, Blood Urea Nitrogen 44H, Creatinine 1.0, Estimat Glomerular Filtration Rate , Glucose Level 188H, Calcium Level 9.2 Height (Feet): 5 Height (Inches): 4.00 Weight (Pounds): 185 Cardiovascular: normal rate Respiratory/Chest: lungs clear Edema: no edema noted Generalized Melecio Carranza MD May 03, 2019 12:27
--- NOTE | 2019-05-03 13:42 | Pulmonology Progress Note ---
Assessment/Plan Problems: (1) Lactic acid acidosis (2) Leukocytosis (3) Healthcare-associated pneumonia (4) Diastolic CHF (5) COPD exacerbation (6) Alzheimer's dementia (7) HTN (hypertension) (8) Hypothyroidism (9) Failure to thrive Assessment/Plan 84 F h/o alzheimers dementia, skilled nursing resident, COPD, mild diastolic CHF, HTN, hypothyroidism and recent admission @ [facility] with a COPD exacerbation now p/ w respiratory failure likely 2/2 an acute COPD exacerbation +/- an antecedant URI/tracheobronchitis vs early PNA (HAP). With respect to her volume status she has mild DD only and appears slightly fluid overloaded on exam. The exact etiology of her lactic acidosis in unknown but she does not seem to be having a rip roaring infection at this time and review of CS-link shows an elevated LA in the past. Assessment/Plan: Optimize pulmonary hygiene/mobilize as tolerated BiPAP PRN Titrate O2 to keep SaO2 > 90% D/C SM, start Pred 30 and taper RTC and PRN HHN's S/P Levaquin/Flagyl/Vanco (D5/5) - D/C and observe off Abx Monitor volumes and renal function, diuresis + free water repletion per Dr. Carranza DVT Px: Hep SQ Aspiration precautions, [employer] recs Wound care DNAR Subjective Allergies: Coded Allergies: PENICILLINS (Verified Allergy, Unknown, 04/29/19) Subjective AFVSS O2 needs stable Per RN no cough or wheezing no distress dany PO Objective Last 24 Hour Vital Signs Date Time Temp Pulse Resp B/P (MAP) Pulse Ox O2 Delivery O2 Flow Rate FiO2 05/03/19 12:00 98.2 81 20 130/78 (95) 98 05/03/19 12:00 2.0 05/03/19 09:26 65 135/68 05/03/19 08:14 95 Nasal Cannula 2.0 28 05/03/19 08:00 2.0 05/03/19 08:00 96.8 65 18 135/68 (90) 100 05/03/19 07:59 63 22 97 Nasal Cannula 2.0 28 65 22 96 05/03/19 07:54 Nasal Cannula 2.0 05/03/19 07:39 67 05/03/19 04:06 97.5 67 20 153/64 (93) 94 05/03/19 04:00 2.0 05/03/19 04:00 61 05/03/19 01:55 60 20 98 Nasal Cannula 2.0 28 55 20 97 05/03/19 00:00 97.9 69 20 150/68 (95) 95 05/03/19 00:00 53 05/03/19 00:00 2.0 05/02/19 21:00 Nasal Cannula 2.0 05/02/19 20:00 85 05/02/19 20:00 95 Nasal Cannula 2.0 28 05/02/19 20:00 2.0 05/02/19 20:00 98.2 75 24 152/72 (98) 95 05/02/19 16:00 96.7 80 19 119/48 (71) 93 05/02/19 16:00 2.0 05/02/19 16:00 98 Intake and Output 05/02/19 05/03/19 19:00 07:00 Intake Total 340 ml Output Total 800 ml 600 ml Balance -460 ml -600 ml Intake Oral 340 ml Output Urine Total 800 ml 600 ml General Appearance: no acute distress, cachetic HEENT: normocephalic, atraumatic, anicteric, mucous membranes moist Respiratory/Chest: chest wall non-tender, lungs clear, normal breath sounds, no respiratory distress, no accessory muscle use Cardiovascular: normal peripheral pulses, normal rate, regular rhythm Abdomen: normal bowel sounds, soft, non tender, no organomegaly, non distended Extremities: no cyanosis, no clubbing, no edema Laboratory Tests 05/03/19 06:50: White Blood Count 18.6H, Red Blood Count 4.37, Hemoglobin 13.1, Hematocrit 38.4 , Mean Corpuscular Volume 88, Mean Corpuscular Hemoglobin 29.9, Mean Corpuscular Hemoglobin Concent 34.1, Red Cell Distribution Width 12.8, Platelet Count 233, Mean Platelet Volume 6.8, Neutrophils (%) (Auto) , Lymphocytes (%) ( Auto) , Monocytes (%) (Auto) , Eosinophils (%) (Auto) , Basophils (%) (Auto) , Differential Total Cells Counted 100, Neutrophils % (Manual) 84H, Lymphocytes % (Manual) 11L, Monocytes % (Manual) 5, Eosinophils % (Manual) 0, Basophils % ( Manual) 0, Band Neutrophils 0, Platelet Estimate Adequate, Platelet Morphology Normal, Red Blood Cell Morphology Normal, Sodium Level 150H, Potassium Level 4.1 , Chloride Level 113H, Carbon Dioxide Level 30, Anion Gap 7, Blood Urea Nitrogen 44H, Creatinine 1.0, Estimat Glomerular Filtration Rate , Glucose Level 188H, Calcium Level 9.2 Current Medications Medications (Trade) Dose Ordered Sig/Hazel Route PRN Reason Start Time Stop Time Status Last Admin Dose Admin Acetaminophen (Tylenol) 650 mg Q4H PRN ORAL Mild Pain (Pain Scale 1-3) 04/29/19 13:45 05/29/19 13:44 04/30/19 17:18 Albuterol/ Ipratropium (Albuterol/ Ipratropium) 3 ml Q6HRT HHN 04/29/19 19:00 05/04/19 18:59 05/03/19 08:14 Amlodipine Besylate (Norvasc) 5 mg DAILY ORAL 04/29/19 16:30 05/29/19 16:29 05/03/19 09:26 Dextrose 1,000 ml @ 75 mls/hr [id number] IV 05/03/19 12:00 06/02/19 11:59 05/03/19 12:30 Dextrose (Dextrose 50%) 25 ml Q30M PRN IV Hypoglycemia 04/29/19 13:45 05/29/19 13:44 Dextrose (Dextrose 50%) 50 ml Q30M PRN IV Hypoglycemia 04/29/19 13:45 05/29/19 13:44 Furosemide (Lasix) 40 mg DAILY ORAL 05/03/19 09:00 06/02/19 08:59 05/03/19 09:26 Heparin Sodium (Porcine) (Heparin 5000 units/ml) 5,000 units Q12HR SUBQ 04/29/19 21:00 05/29/19 20:59 05/03/19 09:28 Levofloxacin (Levaquin) 750 mg Q48H ORAL 05/03/19 20:00 05/10/19 19:59 Levothyroxine Sodium (Synthroid) 100 mcg DAILY@0630 ORAL 04/30/19 06:30 05/30/19 06:29 05/03/19 06:53 Magnesium Hydroxide (Mom) 30 ml HSPRN PRN ORAL Constipation 04/29/19 16:24 05/29/19 16:23 Methylprednisolone Sodium Succinate (Solu-MEDROL) 30 mg EVERY 12 HOURS IVP 04/30/19 21:00 05/29/19 20:59 05/03/19 09:26 Metronidazole (Flagyl) 500 mg Q6HR ORAL 04/29/19 18:00 05/06/19 17:59 05/03/19 12:30 Vancomycin HCl (Vanco rx to dose) 1 ea DAILY PRN MISC Per rx protocol 04/29/19 14:45 05/29/19 14:44 Vancomycin HCl 500 mg/Sodium Chloride 110 ml @ 110 mls/hr Q12HR IVPB 04/29/19 21:00 05/04/19 20:59 05/03/19 09:31 Benson Madera MD May 03, 2019 13:42
--- NOTE | 2019-05-03 15:31 | Diagnostic Imaging Report ---
Indication: Dyspnea Comparison: 04/29/2019 A single view chest radiograph was obtained. Findings: Pulmonary vascular congestion and interstitial edema demonstrated. Cardiomegaly is present. Bones are osteopenic. Deformity of the right humeral neck again noted. IMPRESSION: CHF
[2019-05-03 16:00] VITALS: BP 140/70
--- NOTE | 2019-05-03 16:21 | Surgery Progress Note ---
Surgery Progress Note Subjective Additional Comments no acute events leukocytosis improving exam stable Objective Last 24 Hour Vital Signs Date Time Temp Pulse Resp B/P (MAP) Pulse Ox O2 Delivery O2 Flow Rate FiO2 05/03/19 13:06 66 20 98 Nasal Cannula 2.0 28 63 20 95 05/03/19 12:04 65 05/03/19 12:00 98.2 81 20 130/78 (95) 98 05/03/19 12:00 2.0 05/03/19 09:26 65 135/68 05/03/19 08:14 95 Nasal Cannula 2.0 28 05/03/19 08:00 2.0 05/03/19 08:00 96.8 65 18 135/68 (90) 100 05/03/19 07:59 63 22 97 Nasal Cannula 2.0 28 65 22 96 05/03/19 07:54 Nasal Cannula 2.0 05/03/19 07:39 67 05/03/19 04:06 97.5 67 20 153/64 (93) 94 05/03/19 04:00 2.0 05/03/19 04:00 61 05/03/19 01:55 60 20 98 Nasal Cannula 2.0 28 55 20 97 05/03/19 00:00 97.9 69 20 150/68 (95) 95 05/03/19 00:00 53 05/03/19 00:00 2.0 05/02/19 21:00 Nasal Cannula 2.0 05/02/19 20:00 85 05/02/19 20:00 95 Nasal Cannula 2.0 28 05/02/19 20:00 2.0 05/02/19 20:00 98.2 75 24 152/72 (98) 95 I&O Intake and Output 05/02/19 05/03/19 19:00 07:00 Intake Total 340 ml Output Total 800 ml 600 ml Balance -460 ml -600 ml Intake Oral 340 ml Output Urine Total 800 ml 600 ml Dressing: dry Wound: clean Cardiovascular: RSR Respiratory: clear, decreased breath sounds Abdomen: soft, present bowel sounds Extremities: no cyanosis Laboratory Tests Test 05/03/19 06:50 White Blood Count 18.6 K/UL (4.8-10.8) H Red Blood Count 4.37 M/UL (4.20-5.40) Hemoglobin 13.1 G/DL (12.0-16.0) Hematocrit 38.4 % (37.0-47.0) Mean Corpuscular Volume 88 FL (80-99) Mean Corpuscular Hemoglobin 29.9 PG (27.0-31.0) Mean Corpuscular Hemoglobin Concent 34.1 G/DL (32.0-36.0) Red Cell Distribution Width 12.8 % (11.6-14.8) Platelet Count 233 K/UL (150-450) Mean Platelet Volume 6.8 FL (6.5-10.1) Neutrophils (%) (Auto) % (45.0-75.0) Lymphocytes (%) (Auto) % (20.0-45.0) Monocytes (%) (Auto) % (1.0-10.0) Eosinophils (%) (Auto) % (0.0-3.0) Basophils (%) (Auto) % (0.0-2.0) Differential Total Cells Counted 100 Neutrophils % (Manual) 84 % (45-75) H Lymphocytes % (Manual) 11 % (20-45) L Monocytes % (Manual) 5 % (1-10) Eosinophils % (Manual) 0 % (0-3) Basophils % (Manual) 0 % (0-2) Band Neutrophils 0 % (0-8) Platelet Estimate Adequate Platelet Morphology Normal Red Blood Cell Morphology Normal Sodium Level 150 MMOL/L (136-145) H Potassium Level 4.1 MMOL/L (3.5-5.1) Chloride Level 113 MMOL/L (98-107) H Carbon Dioxide Level 30 MMOL/L (21-32) Anion Gap 7 mmol/L (5-15) Blood Urea Nitrogen 44 mg/dL (7-18) H Creatinine 1.0 MG/DL (0.55-1.30) Estimat Glomerular Filtration Rate mL/min (>60) Glucose Level 188 MG/DL (74-106) H Calcium Level 9.2 MG/DL (8.5-10.1) Plan Problems: (1) Deep tissue injury Assessment & Plan: 84-year-old female presented with a deep tissue injury in the sacrum and left buttock area. No tissue breakdown. Erythema somewhat blanchable extending from the sacral region to the left buttock. No drainage no fluctuance patient expresses some discomfort upon palpation. Need to ensure improvement and appropriate care as high risk for breaking down/worsening at which time care for would be very difficult. Pt presented on admission with DTPI L upper buttocks(L)2.5cm x (W)2.2cm. Base of wound is maroon over Historical scarred area. Non-blanching erythema periwound. R and L heels are both boggy with non-blanchable erythema. No other skin concerns noted. Tx.plan: Apply Moisture Barrier Paste to buttocks. Cover with Optifoam Drsg. Change every 3 days and prn. Apply Cavilon Skin Barrier to both heels. Cover each heel with Optifoam drsg. Change every 7 days and prn. Reposition at least every 2hours or as tolerated. Air mattress Offload heels with pillow Nutritional optimization We will follow with recommendations thank you for let me participate in patient' s care (2) Leukocytosis Assessment & Plan: Leukocytosis and lactic acidosis work-up currently underway urine clear receiving IV hydration antibiotics per infectious disease (3) Lactic acid acidosis (4) custodial resident Zeb Valle May 03, 2019 16:21
--- NOTE | 2019-05-03 19:17 | NUR ---
HAND-OFF: Report given to ANETA Hutchinson.
[2019-05-03 20:00] VITALS: BP 120/48
[2019-05-03] MEDS ORDERED: Levofloxacin 750mg tab ORAL SCH (20:00)
[2019-05-04] VITALS: BP 119/69
[2019-05-04] MEDS: Albuterol/Ipratropium 3ml neb HHN SCH ×3 (02:00→13:42)
[2019-05-04 04:00] VITALS: BP 112/56
--- NOTE | 2019-05-04 07:06 | CDS Physician Query ---
Clarification is required for compliance, coding accuracy, and to reflect severity of illness for this patient Dear Melecio Alcantar MD Date: 05/04/2019 CDS: Rakesh Dobsonjuan pablolaura This is an 84-year-old [place] female who was admitted for acute respiratory failure, hypoxic with wheezing, possible COPD exacerbation. There may be a component of CHF. She also has lactic acidosis. Sepsis needs to be ruled out although her blood pressure is normal. WBC: 17.7--->26.5 Tx: Vancomycin According to the clinical indications above, please indicate below the condition PHYSICIAN RESPONSE: Sepsis SIRS SIRS with organ dysfunction Septic Shock Not applicable Other: Present on Admission: Yes No Clinically Undetermined Physician signature Date Please also document in your Progress Notes and/or Discharge Summary and indicate if the condition was present on admission. MTDD
--- NOTE | 2019-05-04 07:22 | NUR ---
NURSE NOTES: pt isn't on restraints, mistakenly added process plan for wrong pt.
--- NOTE | 2019-05-04 07:36 | NUR ---
NURSE NOTES: Received pt from DIEGO CORNELL, Pt is awake and alert, pt has NC 2LMP. Pt has intact iv access RH 22G is running well. No complain of pain at this moment. Pt is on continues heart monitoring. all needs attended, bed is locked and is in the lowest position, call light within easy reach. will continue to monitor.
[2019-05-04 07:44] LABS: HEMATOCRIT 36.6 % (37.0-47.0); HEMOGLOBIN 12.4 G/DL (12.0-16.0); MEAN CORPUSCULAR VOLUME 87 FL (80-99); PLATELET COUNT 212 K/UL (150-450); RED BLOOD COUNT 4.19 M/UL (4.20-5.40); RED CELL DISTRIBUTION WIDTH 12.7 % (11.6-14.8); WHITE BLOOD COUNT 19.9 K/UL (4.8-10.8)
[2019-05-04 07:46] LABS: ANION GAP 8 mmol/L (5-15); BLOOD UREA NITROGEN 39 mg/dL (7-18); CALCIUM 8.9 MG/DL (8.5-10.1); CARBON DIOXIDE 30 MMOL/L (21-32); CHLORIDE 106 MMOL/L (98-107); CREATININE 0.8 MG/DL (0.55-1.30); POTASSIUM 3.6 MMOL/L (3.5-5.1); SODIUM 144 MMOL/L (136-145)
--- NOTE | 2019-05-04 07:48 | NUR ---
HAND-OFF: Report given to ANETA Aggarwal.
[2019-05-04 08:00] VITALS: BP 132/57
[2019-05-04] MEDS: Furosemide 40mg tab ORAL SCH (08:34)
[2019-05-04] MEDS: Heparin 5000 units/ml inj SUBQ SCH (08:35)
--- NOTE | 2019-05-04 10:00 | NUR ---
NURSE NOTES: Dr Ryan CAMACHO notified about WBC 19.9 and other lab results and V/S, ordered to D/C iv fluid, noted and carried out. will continue to monitor.
[2019-05-04 11:58] VITALS: BP 123/75
--- NOTE | 2019-05-04 14:05 | Surgery Progress Note ---
Surgery Progress Note Subjective Additional Comments no acute events leukocytosis no n/v/f/c Objective Last 24 Hour Vital Signs Date Time Temp Pulse Resp B/P (MAP) Pulse Ox O2 Delivery O2 Flow Rate FiO2 05/04/19 13:43 64 18 98 Nasal Cannula 1.0 24 65 18 95 05/04/19 12:28 66 05/04/19 12:00 1.0 05/04/19 11:58 97.3 66 18 123/75 (91) 94 05/04/19 09:00 Nasal Cannula 1.0 05/04/19 08:33 61 132/57 05/04/19 08:18 61 18 98 Nasal Cannula 1.0 24 56 20 96 05/04/19 08:18 96 Nasal Cannula 2.0 28 05/04/19 08:00 1.0 05/04/19 08:00 98.5 56 18 132/57 (82) 96 05/04/19 07:46 56 05/04/19 04:00 1.0 05/04/19 04:00 97.9 80 20 112/56 (74) 93 05/04/19 04:00 60 05/04/19 02:10 53 20 99 Nasal Cannula 2.0 28 05/04/19 02:00 54 20 97 Nasal Cannula 2.0 28 05/04/19 00:02 46 05/04/19 00:00 98.4 71 20 119/69 (86) 91 05/03/19 21:04 Nasal Cannula 1.0 05/03/19 20:00 1.0 05/03/19 20:00 68 05/03/19 20:00 97.7 74 20 120/48 (72) 95 05/03/19 18:51 96 Nasal Cannula 2.0 28 05/03/19 16:00 2.0 05/03/19 16:00 98.1 63 18 140/70 (93) 91 05/03/19 15:28 73 I&O Intake and Output 05/03/19 05/04/19 19:00 07:00 Intake Total 680 ml Output Total 500 ml 10 ml Balance 180 ml -10 ml Intake Oral 680 ml Output Urine Total 500 ml 10 ml # Bowel Movements 1 Dressing: other Wound: other Drains: other Cardiovascular: RSR Respiratory: decreased breath sounds Abdomen: soft, present bowel sounds Extremities: no edema, no cyanosis Laboratory Tests Test 05/04/19 06:20 White Blood Count 19.9 K/UL (4.8-10.8) H Red Blood Count 4.19 M/UL (4.20-5.40) L Hemoglobin 12.4 G/DL (12.0-16.0) Hematocrit 36.6 % (37.0-47.0) L Mean Corpuscular Volume 87 FL (80-99) Mean Corpuscular Hemoglobin 29.7 PG (27.0-31.0) Mean Corpuscular Hemoglobin Concent 33.9 G/DL (32.0-36.0) Red Cell Distribution Width 12.7 % (11.6-14.8) Platelet Count 212 K/UL (150-450) Mean Platelet Volume 6.5 FL (6.5-10.1) Neutrophils (%) (Auto) % (45.0-75.0) Lymphocytes (%) (Auto) % (20.0-45.0) Monocytes (%) (Auto) % (1.0-10.0) Eosinophils (%) (Auto) % (0.0-3.0) Basophils (%) (Auto) % (0.0-2.0) Differential Total Cells Counted 100 Neutrophils % (Manual) 79 % (45-75) H Lymphocytes % (Manual) 15 % (20-45) L Monocytes % (Manual) 6 % (1-10) Eosinophils % (Manual) 0 % (0-3) Basophils % (Manual) 0 % (0-2) Band Neutrophils 0 % (0-8) Platelet Estimate Adequate Platelet Morphology Normal Poikilocytosis Anisocytosis Sodium Level 144 MMOL/L (136-145) Potassium Level 3.6 MMOL/L (3.5-5.1) Chloride Level 106 MMOL/L (98-107) Carbon Dioxide Level 30 MMOL/L (21-32) Anion Gap 8 mmol/L (5-15) Blood Urea Nitrogen 39 mg/dL (7-18) H Creatinine 0.8 MG/DL (0.55-1.30) Estimat Glomerular Filtration Rate mL/min (>60) Glucose Level 174 MG/DL (74-106) H Calcium Level 8.9 MG/DL (8.5-10.1) Plan Problems: (1) Deep tissue injury Assessment & Plan: 84-year-old female presented with a deep tissue injury in the sacrum and left buttock area. No tissue breakdown. Erythema somewhat blanchable extending from the sacral region to the left buttock. No drainage no fluctuance patient expresses some discomfort upon palpation. Need to ensure improvement and appropriate care as high risk for breaking down/worsening at which time care for would be very difficult. Pt presented on admission with DTPI L upper buttocks(L)2.5cm x (W)2.2cm. Base of wound is maroon over Historical scarred area. Non-blanching erythema periwound. R and L heels are both boggy with non-blanchable erythema. No other skin concerns noted. Tx.plan: Apply Moisture Barrier Paste to buttocks. Cover with Optifoam Drsg. Change every 3 days and prn. Apply Cavilon Skin Barrier to both heels. Cover each heel with Optifoam drsg. Change every 7 days and prn. Reposition at least every 2hours or as tolerated. Air mattress Offload heels with pillow Nutritional optimization We will follow with recommendations thank you for let me participate in patient' s care (2) Leukocytosis Assessment & Plan: Leukocytosis and lactic acidosis work-up currently underway urine clear receiving IV hydration antibiotics per infectious disease (3) Lactic acid acidosis (4) prison resident Zeb Valle May 04, 2019 14:05
--- NOTE | 2019-05-04 14:22 | NUR ---
RD ASSESSMENT & RECOMMENDATIONS SEE CARE ACTIVITY FOR COMPLETE ASSESSMENT DAILY ESTIMATED NEEDS: Needs based on Wounds, Cardiac/ 62kg abw 25-30 kcals/kg 1857-2308 total kcals 1.25-1.5 g protein/kg 77-93 g total protein 20-22 mL/kg 6036-2751 total fluid mLs NUTRITION DIAGNOSIS: * Increased protein intake needs R/T wound healing as evidenced by pt admitted w/ DTPI @ L upper buttocks and non-blanchable erythema @ BL heels * Swallowing difficulty R/T dysphagia as evidenced by pt on pureed moist texture w/ NTL. * Altered nutrition related lab values R/T Pre-DM w/ hyperglycemia, on steroids, CHF as evidenced by A1C of 5.8, elev BGs (174 188 175), pt on Prednisone, elev BNP 975 CURRENT DIET:REGULAR, pureed moist w/ NTL PO DIET RECOMMENDATIONS: LOW NA, CCHO MED/ texture per [employer] ADDITIONAL RECOMMENDATIONS: * Calibrated daily bedscale wts: on added p200 mattress + pump daily wts for CHF dx, pt on Lasix * Monitor lytes closely w/ Lasix, replete as needed * Rec NISS while pt on Prednisone: elev BG values * Wound healing: add MVI x 1, Vit C 250mg QD Perfecto BID * [employer] eval for appropriate texture
[2019-05-04] MEDS ORDERED: NORVASC5 MG ORAL (14:29)
--- NOTE | 2019-05-04 14:32 | General Progress Note ---
Assessment/Plan Problem List: (1) Acute respiratory failure with hypoxia ICD Codes: J96.01 - Acute respiratory failure with hypoxia SNOMED: 81887815, 230728413 (2) HTN (hypertension) ICD Codes: I10 - Essential (primary) hypertension SNOMED: 01158787 (3) Diastolic CHF ICD Codes: I50.30 - Unspecified diastolic (congestive) heart failure SNOMED: 12538921, 636289183 (4) COPD exacerbation ICD Codes: J44.1 - Chronic obstructive pulmonary disease with (acute) exacerbation SNOMED: 844893217 (5) Alzheimer's dementia ICD Codes: G30.9 - Alzheimer's disease, unspecified SNOMED: 13521947 (6) Hypothyroidism ICD Codes: E03.9 - Hypothyroidism, unspecified SNOMED: 96114998 (7) Hypernatremia ICD Codes: E87.0 - Hyperosmolality and hypernatremia SNOMED: 483225613 Assessment/Plan: Dc IVF Dc today Subjective Allergies: Coded Allergies: PENICILLINS (Verified Allergy, Unknown, 04/29/19) Subjective In NAD Objective Last 24 Hour Vital Signs Date Time Temp Pulse Resp B/P (MAP) Pulse Ox O2 Delivery O2 Flow Rate FiO2 05/04/19 13:43 64 18 98 Nasal Cannula 1.0 24 65 18 95 05/04/19 12:28 66 05/04/19 12:00 1.0 05/04/19 11:58 97.3 66 18 123/75 (91) 94 05/04/19 09:00 Nasal Cannula 1.0 05/04/19 08:33 61 132/57 05/04/19 08:18 61 18 98 Nasal Cannula 1.0 24 56 20 96 05/04/19 08:18 96 Nasal Cannula 2.0 28 05/04/19 08:00 1.0 05/04/19 08:00 98.5 56 18 132/57 (82) 96 05/04/19 07:46 56 05/04/19 04:00 1.0 05/04/19 04:00 97.9 80 20 112/56 (74) 93 05/04/19 04:00 60 05/04/19 02:10 53 20 99 Nasal Cannula 2.0 28 05/04/19 02:00 54 20 97 Nasal Cannula 2.0 28 2/11/20 00:02 46 05/04/19 00:00 98.4 71 20 119/69 (86) 91 05/03/19 21:04 Nasal Cannula 1.0 05/03/19 20:00 1.0 05/03/19 20:00 68 05/03/19 20:00 97.7 74 20 120/48 (72) 95 05/03/19 18:51 96 Nasal Cannula 2.0 28 05/03/19 16:00 2.0 05/03/19 16:00 98.1 63 18 140/70 (93) 91 05/03/19 15:28 73 Intake and Output 05/03/19 05/04/19 19:00 07:00 Intake Total 680 ml Output Total 500 ml 10 ml Balance 180 ml -10 ml Intake Oral 680 ml Output Urine Total 500 ml 10 ml # Bowel Movements 1 Laboratory Tests 05/04/19 06:20: White Blood Count 19.9H, Red Blood Count 4.19L, Hemoglobin 12.4, Hematocrit 36.6L, Mean Corpuscular Volume 87, Mean Corpuscular Hemoglobin 29.7, Mean Corpuscular Hemoglobin Concent 33.9, Red Cell Distribution Width 12.7, Platelet Count 212, Mean Platelet Volume 6.5, Neutrophils (%) (Auto) , Lymphocytes (%) ( Auto) , Monocytes (%) (Auto) , Eosinophils (%) (Auto) , Basophils (%) (Auto) , Differential Total Cells Counted 100, Neutrophils % (Manual) 79H, Lymphocytes % (Manual) 15L, Monocytes % (Manual) 6, Eosinophils % (Manual) 0, Basophils % ( Manual) 0, Band Neutrophils 0, Platelet Estimate Adequate, Platelet Morphology Normal, Poikilocytosis , Anisocytosis , Sodium Level 144, Potassium Level 3.6, Chloride Level 106, Carbon Dioxide Level 30, Anion Gap 8, Blood Urea Nitrogen 39H, Creatinine 0.8, Estimat Glomerular Filtration Rate , Glucose Level 174H, Calcium Level 8.9 Height (Feet): 5 Height (Inches): 4.00 Weight (Pounds): 185 Cardiovascular: normal rate Respiratory/Chest: lungs clear Edema: no edema noted Generalized Melecio Carranza MD May 04, 2019 14:32
--- NOTE | 2019-05-04 14:50 | NUR ---
DISCHARGE PLANNED DISCHARGE ORDER NOTED PATIENT IS RETURNING TO [facility] ROOM [address] SKILLED T: [phone] FOR NURSE TO NURSE REPORT [facility] HAS BEEN ARRANGED FOR [address] ORIENTAL RUG STRETCHER SPOKE WITH DAUGHTER, MONICA. SHE IS IN AGREEMENT WITH DISCHARGE PLAN
[2019-05-04 15:47] VITALS: BP 124/53
--- NOTE | 2019-05-04 17:29 | Pulmonology Progress Note ---
Assessment/Plan Problems: (1) Lactic acid acidosis (2) Leukocytosis (3) Healthcare-associated pneumonia (4) Diastolic CHF (5) COPD exacerbation (6) Alzheimer's dementia (7) HTN (hypertension) (8) Hypothyroidism (9) Failure to thrive Assessment/Plan 84 F h/o alzheimers dementia, snf resident, COPD, mild diastolic CHF, HTN, hypothyroidism and recent admission @ [facility] with a COPD exacerbation now p/ w respiratory failure likely 2/2 an acute COPD exacerbation +/- an antecedant URI/tracheobronchitis vs early PNA (HAP). With respect to her volume status she has mild DD only and appears slightly fluid overloaded on exam. The exact etiology of her lactic acidosis in unknown but she does not seem to be having a rip roaring infection at this time and review of CS-link shows an elevated LA in the past. 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 DNAR Subjective Allergies: Coded Allergies: PENICILLINS (Verified Allergy, Unknown, 04/29/19) Subjective AFVSS O2 needs stable Per RN no cough or wheezing no distress dany PO Objective Last 24 Hour Vital Signs Date Time Temp Pulse Resp B/P (MAP) Pulse Ox O2 Delivery O2 Flow Rate FiO2 05/04/19 15:47 97.3 78 18 124/53 (76) 94 05/04/19 13:43 64 18 98 Nasal Cannula 1.0 24 65 18 95 05/04/19 12:28 66 05/04/19 12:00 1.0 05/04/19 11:58 97.3 66 18 123/75 (91) 94 05/04/19 09:00 Nasal Cannula 1.0 05/04/19 08:33 61 132/57 05/04/19 08:18 61 18 98 Nasal Cannula 1.0 24 56 20 96 05/04/19 08:18 96 Nasal Cannula 2.0 28 05/04/19 08:00 1.0 05/04/19 08:00 98.5 56 18 132/57 (82) 96 05/04/19 07:46 56 05/04/19 04:00 1.0 05/04/19 04:00 97.9 80 20 112/56 (74) 93 05/04/19 04:00 60 05/04/19 02:10 53 20 99 Nasal Cannula 2.0 28 05/04/19 02:00 54 20 97 Nasal Cannula 2.0 28 05/04/19 00:02 46 05/04/19 00:00 98.4 71 20 119/69 (86) 91 05/03/19 21:04 Nasal Cannula 1.0 05/03/19 20:00 1.0 05/03/19 20:00 68 05/03/19 20:00 97.7 74 20 120/48 (72) 95 05/03/19 18:51 96 Nasal Cannula 2.0 28 Intake and Output 05/03/19 05/04/19 19:00 07:00 Intake Total 680 ml Output Total 500 ml 10 ml Balance 180 ml -10 ml Intake Oral 680 ml Output Urine Total 500 ml 10 ml # Bowel Movements 1 General Appearance: no acute distress, cachetic HEENT: normocephalic, atraumatic, anicteric, mucous membranes moist Respiratory/Chest: chest wall non-tender, lungs clear, normal breath sounds, no respiratory distress, no accessory muscle use Cardiovascular: normal peripheral pulses, normal rate, regular rhythm Abdomen: normal bowel sounds, soft, non tender, no organomegaly, non distended , no mass Extremities: no cyanosis, no clubbing, no edema Laboratory Tests 05/04/19 06:20: White Blood Count 19.9H, Red Blood Count 4.19L, Hemoglobin 12.4, Hematocrit 36.6L, Mean Corpuscular Volume 87, Mean Corpuscular Hemoglobin 29.7, Mean Corpuscular Hemoglobin Concent 33.9, Red Cell Distribution Width 12.7, Platelet Count 212, Mean Platelet Volume 6.5, Neutrophils (%) (Auto) , Lymphocytes (%) ( Auto) , Monocytes (%) (Auto) , Eosinophils (%) (Auto) , Basophils (%) (Auto) , Differential Total Cells Counted 100, Neutrophils % (Manual) 79H, Lymphocytes % (Manual) 15L, Monocytes % (Manual) 6, Eosinophils % (Manual) 0, Basophils % ( Manual) 0, Band Neutrophils 0, Platelet Estimate Adequate, Platelet Morphology Normal, Poikilocytosis , Anisocytosis , Sodium Level 144, Potassium Level 3.6, Chloride Level 106, Carbon Dioxide Level 30, Anion Gap 8, Blood Urea Nitrogen 39H, Creatinine 0.8, Estimat Glomerular Filtration Rate , Glucose Level 174H, Calcium Level 8.9 Current Medications Medications (Trade) Dose Ordered Sig/Hazel Route PRN Reason Start Time Stop Time Status Last Admin Dose Admin Acetaminophen (Tylenol) 650 mg Q4H PRN ORAL Mild Pain (Pain Scale 1-3) 04/29/19 13:45 05/29/19 13:44 04/30/19 17:18 Albuterol/ Ipratropium (Albuterol/ Ipratropium) 3 ml Q6HRT HHN 04/29/19 19:00 05/04/19 18:59 05/04/19 13:42 Amlodipine Besylate (Norvasc) 5 mg DAILY ORAL 04/29/19 16:30 05/29/19 16:29 05/04/19 08:33 Dextrose (Dextrose 50%) 25 ml Q30M PRN IV Hypoglycemia 04/29/19 13:45 05/29/19 13:44 Dextrose (Dextrose 50%) 50 ml Q30M PRN IV Hypoglycemia 04/29/19 13:45 05/29/19 13:44 Furosemide (Lasix) 40 mg DAILY ORAL 05/03/19 09:00 06/02/19 08:59 05/04/19 08:34 Heparin Sodium (Porcine) (Heparin 5000 units/ml) 5,000 units Q12HR SUBQ 04/29/19 21:00 05/29/19 20:59 05/04/19 08:35 Levofloxacin (Levaquin) 750 mg Q48H ORAL 05/03/19 20:00 05/10/19 19:59 05/03/19 22:12 Levothyroxine Sodium (Synthroid) 100 mcg DAILY@0630 ORAL 04/30/19 06:30 05/30/19 06:29 05/04/19 06:05 Magnesium Hydroxide (Mom) 30 ml HSPRN PRN ORAL Constipation 04/29/19 16:24 05/29/19 16:23 Prednisone (predniSONE) 30 mg DAILY ORAL 05/04/19 09:00 06/03/19 08:59 05/04/19 08:33 Benson Madera MD May 04, 2019 17:29
--- NOTE | 2019-05-04 17:37 | NUR ---
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 will continue to monitor.
--- NOTE | 2019-05-04 19:43 | NUR ---
HAND-OFF: Report given to ANETA CORTEZ. Pt is awake and stable.
--- NOTE | 2019-05-04 20:00 | NUR ---
NURSE NOTES: Pt was sent with [facility] and was taken by 2 top polisher to return to [facility]. Pt IV was removed and is in stable condition. Sent on room air and satting at 93%, VSS. All belongings sent.
[2019-05-04] MEDS ORDERED: NS 275ml ONE (20:19)
[2019-05-04] MEDS ORDERED: Tubing IV Secondary IV ONE (20:19)
--- NOTE | 2019-05-06 09:14 | Discharge Summary ---
Discharge Summary Discharge Summary _ DATE OF ADMISSION: 04/29/2019 DATE OF DISCHARGE: 05/04/2019 DISCHARGED BY: Dr. Carranza REASON FOR ADMISSION: 84 years old female with past medical history of COPD, CHF, hypertension, dyslipidemia, hypothyroidism, dementia, resident of longterm facility, was transferred for evaluation due to tachypnea ,wheezing and shortness of breath. Vital signs revealed tachycardia ,tachypnea and hypoxia . patient required supplemental oxygen. After short evaluation in emergency department patient was diagnosed with lactic acidosis and COPD exacerbation and admitted for further management. Laboratory work-up revealed WBC 17.1, hemoglobin 13.4, hematocrit 39.9, platelet count 180. Stable electrolytes and renal parameters. Lactic acid 4.4, repeated 5.2. Stable LFT. Troponin 0.053. Albumin 3.2. Urinalysis revealed no evidence of urinary tract infection . EKG revealed sinus tachycardia , no acute ischemic changes. Chest x-ray revealed no acute cardiopulmonary pathology. Suspected CHF. Per POLST patient with DNR/DNI status with selective treatment. CONSULTANTS: pulmonary Dr. Madera surgery Dr. Valle [place] [employer] [facility]SE: Patient admitted to telemetry floor. Supplemental oxygen provided and titrated to keep pulse oximetry above 90%. Nebulizing treatment with bronchodilator provided [id number] and as needed. BiPAP was on board as needed. 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 Patient was discharged on Medrol Dosepak. Patient initially was on empiric antibiotics. DVT prophylaxis provided. Aspiration precaution maintained. Follow-up chest x-ray revealed congestive heart failure. Patient remained afebrile . Patient develop leukocytosis which was was trending down , likely due to steroids ; no evidence of infection. Volumes were closely monitored. Patient was on oral diuretic with close monitoring of volumes and renal parameters. Electrolytes corrected as needed. Potassium replaced. Blood pressure was managed with calcium channel misti and Lasix , and remained stable. Tachycardia resolved. Prior to discharge pulse oximetry stable on oxygen 2 L via nasal cannula. Surgeon seen the patient for deep tissue injury in the sacral and left buttock area. No tissue breakdown. Wound care provided as per surgeon recommendation . Continue wound care at the facility. TSH within normal limits. Current dose of levothyroxine was continued. Hypernatremia resolved. Patient clinically stabilized and was ready for transfer back to longterm [facility] for continuation of care FINAL DIAGNOSES: Acute respiratory failure with hypoxia-resolved Hypertension Diastolic CHF COPD exacerbation Alzheimer dementia Hypothyroidism Hypernatremia Deep tissue injury present on admission, sacral and left buttock area, no tissue breakdown. DISCHARGE MEDICATIONS: See Medication Reconciliation list. DISCHARGE INSTRUCTIONS: Patient was discharged to the longterm facility. Follow up with medical doctor at the facility. I have been assigned to dictate discharge summary for this account. I was not involved in the patient's management. Megan Meyer NP May 06, 2019 09:14
== END 2019-05-04 20:20 | DRG 193 ==
LOC: EDBD 11:08 → EMR 13:15 → 2E 15:57 → EDBEDREQ 16:04 → 2E 05-01 06:56
DX: J18.9 Pneumonia, unspecified organism (principal); J96.01 Acute respiratory failure with hypoxia; J44.1 Chronic obstructive pulmonary disease with (acute) exacerbation; I50.30 Unspecified diastolic (congestive) heart failure; E87.0 Hyperosmolality and hypernatremia; J44.0 Chronic obstructive pulmonary disease with (acute) lower respiratory infection; R62.7 Adult failure to thrive; L89.46 Pressure-induced deep tissue damage of contiguous site of back, buttock and hip; Z88.0 Allergy status to penicillin; I11.0 Hypertensive heart disease with heart failure; E78.5 Hyperlipidemia, unspecified; G30.9 Alzheimer's disease, unspecified; F02.80 Dementia in other diseases classified elsewhere, unspecified severity, without behavioral disturbance, psychotic disturbance, mood disturbance, and anxiety; E03.9 Hypothyroidism, unspecified; Z79.82 Long term (current) use of aspirin
CPT/HCPCS: 36415; 36600; 71045; 80048; 80053; 80061; 80202; 81003; 82550; 82553; 82803; 83036; 83605; 83880; 84443; 84484; 85007; 85025; 86710; 87040; 87081; 93005; 94640; 94664; 96365; 96366; 96375; 99285; J7030; J7620; J8499